=== PATIENT | female | born 2005 | race Two or more races ===

== ENCOUNTER 2024-09-27 17:38 | Observation (INO) | payer MEDICAID, SELFPAY ==
[2024-09-27] VITALS (21 sets, daily range): BP systolic 111–129; BP diastolic 62–75; PULSE 70–93; RESP 16–99; TEMP 36.8; O2SAT 92–100; BMI 38.7
[2024-09-27 18:07] LABS: Collection Type, Urine Clean Catch
[2024-09-27 19:06] LABS: Bilirubin,Urine Negative (Negative); Blood,Urine Negative (Negative); Clarity,Urine Clear (Clear/Hazy); Color,Urine Lt-Yellow (Lt Yel-Yel); Glucose, Urine Negative (Negative); Ketones,Urine 1+ (Negative); Leukocyte Esterase,Urine Negative (Negative); Nitrite,Urine Negative (Negative); PH,Urine 7.5 (5.0-7.0); Protein,Urine Negative (Neg - Trace); RBC,Urine 2 /hpf (0-3); Specific Gravity,Urine 1.018 (1.001-1.035); Squamous Epithelial Cell,Urine 10 /hpf (0-5); Urobilinogen,Urine Negative mg/dL (0.0-1.0); WBC,Urine 1 /hpf (0-5)
== END 2024-09-27 19:35 | disposition home or self-care (01) ==
PROVIDERS: Admitting Provider Obstetrics & Gynecology; Visit Provider Obstetrics & Gynecology
DX: Z34.83 Encounter for supervision of other normal pregnancy, third trimester (principal); Z3A.30 30 weeks gestation of pregnancy
CPT/HCPCS: 59025; 59899; 81001; G0378

== ENCOUNTER 2024-10-17 14:25 | Outpatient (AMB) | payer MEDICAID, SELFPAY ==
[2024-10-17 14:51] VITALS: BP 115/74; PULSE 75; RESP 16; TEMP 36.6; O2SAT 96; BMI 40.6
--- NOTE | 2024-10-17 14:51 | OBCLNT_ITS ---
Vital Signs 10/17/24 14:51 Height 1.5 m Height Method Stated Weight 91.172 kg Weight Measurement Method Standing Scale BMI 40.6 BP 115/74 Blood Pressure Source Automatic Cuff Blood Pressure Location Left Upper Arm Position Sitting Respiration 16 Pulse 75 Pulse Source Monitor Temp 97.8 F Temp Source Oral Pulse Oximetry (%) 96 Oxygen Delivery Method Room Air Allergies/Home Meds Allergies & Medications Allergies No Known Allergies Allergy (Verified 10/17/24 14:53) Medication Reconciliation Unobtainable 10/17/24 [History Confirmed 10/17/24] Intake Visit Data Collection New Patient or Established: Established Patient (seen at [facility] within 3 years) Reason for Visit:: care Seen by Clinical Staff ONLY (RN/MA): No Circulation Librarian Required: No Do You Feel Safe at Home: Yes Authorities Contacted: N/A PCP or OBGYN visit in last 3 months: Yes Hx Now: Yes Are you currently on any form of Control: No Last menstrual period: 02/25/24 Pain Present Currently: No Pain Scale Used: Mortensen-Castro/Numerical Pain scale:: 0 Smoking Status Smoking Status: Never smoker Questionnaires Covid-19 Vaccine Questionnaire Has patient been vacinated for Covid-19 Have you been vacinated for Covid-19: No PHQ-9 PHQ-2 Over the last 2 weeks, how often have you been bothered by any of the following problems? 1. Little interest or pleasure in doing things: not at all 2. Feeling down, depressed, or hopeless: not at all Total score: 0 PHQ-9 3. Trouble falling or staying asleep, or sleeping too much: Not at all 4. Feeling tired or having little energy: Not at all 5. Poor appetite or overeating: Not at all 6. Feeling bad about yourself - or that you are a failure or have let yourself or your family down: Not at all 7. Trouble concentrating on things, such as reading the newspaper or watching television: Not at all 8. Moving or speaking so slowly that other people could have noticed? - Or the opposite - being so fidgety or restless that you have been moving around a lot more than usual: not at all 9. Thoughts that you would be better off or of hurting yourself in some way: Not at all Total score: 0 Source: Developed by Drs. Everett Perez, Amisha Barnhart, Madi Larry and colleagues, with an educational nani from [employer]. Depression screen completed yes Social History Living Situation History Marital Status: Life Partner Lives With: Family Housing: Apartment Tobacco History Smoking Status: Never smoker Second Hand Smoke Exposure: No Alcohol History Alcohol Intake: Never Domestic Abuse History Do You Feel Safe at Home: Yes Past Medical History Past Medical History Have you ever been diagnosed with any of the following: Neurological Problems Cerebrovascular Accident (CVA): No Transient Ischemic Attacks (TIA): No Dementia: No Alzheimer's Disease: No Parkinson's Disease: No Brain Tumor: No Meningitis: No Seizures: No Epilepsy: No Guillain-Mcmechen Syndrome: No Cardiology Problems Myocardial Infarction: No Cardiac Arrhythmia: No Atrial Fibrillation: No Angina: No Hypertension: No Respiratory Problems Chronic Obstructive Pulmonary Disease (COPD): No Asthma: No Bronchitis: No Emphysema: No Pneumonia: No Pulmonary Fibrosis: No Tuberculosis: No Pulmonary Embolism: No Pulmonary Edema: No Sleep Apnea: No CPAP Dependent: No Hx Cough: No Cough: No Wheezing: No Chest Deformities: No Smoking: No Smoking Cessation Counseling: No Smoking Exposure: No Tobacco Use: No Stomache/Intestinal Problems Liver Cancer: No Hepatitis: No Cirrhosis: No Gall Bladder Disease: No Crohn's Disease: No Obstructive Bowel: No Hiatal Hernia: No Genital/Urinary Problems Chronic Kidney Disease: No Renal Disease: No Kidney Stones: No Polycystic Kidney Disease: No Neurogenic Bladder: No Reproductive Problems Breast Cancer: No Endometriosis: No Fibroids: No Genital Herpes: No Gonorrhea: No Previous Pregnancies: Yes Syphilis: No Musculoskeletal Problems Muscular Dystrophy: No Myasthenia Gravis: No Marfan's Syndrome: No Bone Cancer: No Arthritis: No Gout: No Head,Eye,Nose,Throat Problems Cataracts: No Glaucoma: No Blind: No Retinal Detachment: No Macular Degeneration: No Chronic Ear Infections: No Deafness: No Eye Prosthesis: No Endocrine Problems Diabetes Mellitus Type 1: No Diabetes Mellitus Type 2: No Hypoglycemia: No Jet's Syndrome: No Langston's Disease: No Adrenal Disease: No Graves' Disease: No Blood Problems Anemia: No Leukemia: No Hemophilia: No Thalassemia: No Sickle Cell Disease: No Clotting Problems: No Psychologic Problems Depression: No Anxiety: No Behavior Problems: No Other Problems Hospitalization: No Autoimmune Disease: No Down Syndrome: No Autism: No Developmental Delay: No Cosmetic Surgery: No Surgical History Angioplasty: No Appendectomy: No Bariatric Surgery: No Breast Surgery: No Cancer Surgery: No Carotid Endarterectomy: No Cholecystectomy: No Colectomy: No Colostomy: No Coronary Artery Bypass Graft: No Valve Replacement: No Herniorrhaphy: No History of Present Illness HPI Narrative Patient is a 3 para 2 with 2 living children presenting for transfer of care from another facility. Her last menstrual period was on 02-25-2024, with an estimated due date of 12-01-2024, consistent with 23 weeks and 6 days by ultrasound. Initial labs performed on 08-06-2024 showed blood group O-positive, rubella-immune status, nonreactive RPR, negative hepatitis B and HIV, negative gonorrhea and chlamydia, one-hour glucose of 124, and A1c of 5.2. Patient previously received care at [facility] under Dr. Metzger, who has since retired from hospital practice. She reports no history of blood pressure issues or gestational diabetes in her previous pregnancies. Patient discontinued vitamins due to significant nausea. Patient has no other significant medical history reported. Her current and past medications include vitamins, which she stopped taking due to sickness. Diagnostic Test Results and Labs: - Ultrasound (Date N/A): Consistent with 23 weeks and 6 days gestation - Initial labs (08-06-2024): - Blood group: O-positive - Rubella: Immune - RPR: Nonreactive - Hepatitis B: Negative - HIV: Negative - Gonorrhea and chlamydia: Negative - One-hour glucose: 124 - A1c: 5.2 OB Initial Visit Menstrual History Menstrual reliability: definite Flow: normal Menstrual regularity: regular Monthly: Yes Age at menarche: 9 On control pills at conception: No Date of positive home test: 06/29/24 Associated symptoms (LMP): Denies amenorrhea, nausea, vomiting, fatigue, breast tenderness, urinary frequency, irritability, bloating or other OB History : 3 Para: 2 # of Living Children: 0 Delivery History 1st : Child's name: MATTHEW date: 03/06/20 sex: male Gestational age at delivery (weeks): 40 Delivery type: vaginal History of depression before or after : No 2nd : Child's name: CHRISS date: 03/13/22 sex: female Gestational age at delivery (weeks): 41 Delivery type: vaginal History of depression before or after : No Infection History & Risk Evaluation History of STDs: none Genetic Screening & History Genetic Screening/Teratology Counseling - Includes patient, baby's father, or anyone in either family with: 1. Patient's age 35 years or older as of estimated date of delivery: No 2. Thalassemia (Persian, Cymro, Mediterranean, or Background); MCV less than 80: No 3. Neural Tube Defect (Meningomyelocele, Spina Bifida, or Anencephaly): No 4. Congenital Heart Defect: No 5. Down Syndrome: No 6. Remy-Sachs (Ashkenazi Worship, Cajun, Botswanan Kyrgyz): No 7. Jodi Disease (Ashkenazi Worship): No 8. Familial Dysautonomia (Ashkenazi Worship): No 9. Sickle Cell Disease or Trait (): No 10. Hemophilia or other blood disorders: No 11. Muscular Dystrophy: No 12. Cystic Fibrosis: No 13. [place]'s Chorea: No 14. Mental Retardation/Autism: No 15. Other inherited genetic or chromosomal disorder: No 16. Maternal Metabolic Disorder (EG,TYPE 1 Diabetes, PKU): No 17. Patient or baby's father had a child with defects not listed above: No 18. Recurrent loss or a stillbirth: No 19. Medications (including supplements, vitamins, herbs or otc drugs)/illicit/recreational drugs/alcohol since last menstrual period: No 20. Any other: No Infection History 1. Live with someone with TB or exposed to TB: No 2. Rash or viral illness since last menstrual period: No 3. Hepatitis B,C: No Other (see comments) Source: [employer] OB Flowsheet OB Flowsheet Initial Weight: Not Recorded Date -?-?-?-?-?-?-?-?-?-?-?-?- EGA Weight Edema CTX Effacement BP Fundal ht Pres Dilation Effacement Station Visit Note Alb Glu FHR Mov 10/17/24 -?-?-?-?-?-?-?-?-?-?-?-?- 33w 4d 91.172 kg 115/74 OB T Count includes the [facility] 145 Review of Systems Review of Systems Systems Reviewed: All systems reviewed, normal except as documented Constitutional Constitutional: Denies fatigue Gastrointestinal Gastrointestinal: Denies bloating, Denies nausea and Denies vomiting Genitourinary Genitourinary: Denies amenorrhea and Denies urinary frequency Psychiatric Psychiatric: Denies irritability Endocrine Endocrine: Denies fatigue Exam General Limitations: no limitations General Appearance: alert, in no apparent distress, comfortable, cooperative, healthy appearing, well developed and well groomed Chest Chest inspection: Present normal inspection and symmetric chest wall rise Abdominal Abdominal exam: Present soft and normal bowel sounds Psych Psychiatric exam: Present normal affect and normal mood Skin Skin exam: Present warm, dry, intact and normal color Assessment & Plan Diagnosis / Problem List (1) Supervision of high risk , unspecified, second trimester: Status: Acute Plan : - April Cool is at 23 weeks and 6 days gestation. - Last menstrual period: 02-25-2024, consistent with ultrasound dating. - Estimated due date: 12-01-2024. - Initial labs (08-06-2024) within normal limits. - No current evidence of gestational diabetes. - No history of hypertension or diabetes in previous pregnancies. - Transferring care from [facility] (Dr. Metzger). Plan: - Schedule follow-up appointment in 2 weeks. - Anticipate blood tests at next visit. - Continue care with visits every 2 weeks, increasing to weekly as term approaches. - Restart vitamins and monitor for tolerance. - Delivery planned at the hospital. Office Procedures OB Clinic LOC & Office Proc's Nursing/Assessment Patient Status: Established Patient OB Clinic Nursing Assessment: Medication Reconciliation, Update PMH in EMR and Vital Signs OB Clinic Coordination of Care: Complex Care and Chronic Disease 1-5, Consent,records obtained, informed consent, Education Simp Pt/Fam, Lab and Imaging orders, Results/Orders obtained and Staff clarify orders Special Needs: Heart tones Established Patient Charge Established Patient Point Assignment: 135 Established Patient Point Charge: EP Level 4 (120-155)
== END 2024-10-17 15:05 | disposition home or self-care (01) ==
LOC: HODSOBC 14:25
PROVIDERS: Supervising Provider Obstetrics & Gynecology; Visit Provider Obstetrics & Gynecology
DX: O09.93 Supervision of high risk pregnancy, unspecified, third trimester (principal); Z3A.33 33 weeks gestation of pregnancy
CPT/HCPCS: 99214; G0463

== ENCOUNTER 2024-10-26 15:52 | Inpatient (IN) | payer MEDICAID, SELFPAY ==
[2024-10-26] VITALS (88 sets, daily range): BP systolic 109–123; BP diastolic 55–69; PULSE 68–101; RESP 18–99; TEMP 36.4–36.8; O2SAT 98–100; BMI 40.1
[2024-10-26] MEDS: RINGERS LACTATED 1000 ML 1,000 ML 100 ML IV (16:30)
--- NOTE | 2024-10-26 16:52 | XR_ITS ---
Examination: Complete OB ultrasound greater than 14 weeks Date and time of exam: October 26, 2024 at 7203 hrs. Indications: Pelvic contractions beginning 3 days ago Findings: Viable intrauterine single fetus with single amniotic sac presentation cephalic Cardiac motion 144 BPM Placenta anterior grade 1 Amniotic fluid index 12.1 Cervix 3.9 cm Ovaries obscured by bowel gas. Composite estimated gestational age based on BPD, head circumference, abdominal circumference, femur length is 33 weeks 0 days Estimated weight 2114 g. Survey of intracranial anatomy, spinal anatomy, abdominal anatomy, four-chamber heart performed with no abnormalities identified. Impression: Viable intrauterine gestation cephalic presentation Estimated gestational age 33 weeks 0 days.
[2024-10-26] MEDS: BETAMET ACET/BETAMET NA PH (Celestone) 6 MG/ML VIAL 12 MG IM (17:15)
[2024-10-26 17:50] LABS: Basophils % (Auto) 0 % (0-2.5); Eosinophils % (Auto) 0 % (0-10); Hematocrit 33.1 % (36.0-46.0); Hemoglobin 11.3 g/dL (12.0-16.0); Immature Granulocytes % (Auto) 1 % (0-0); Immature Granulocytes Auto 0.04 Thou/mm3 (0.00-0.00); Lymphocytes # (Auto) 1.2 Thou/mm3 (1.0-4.8); Lymphocytes % (Auto) 17 % (10-50); Mean Corpuscular HGB Conc 34.1 g/dl (31.0-37.0); Mean Corpuscular Hemoglobin 28.5 pg (25.0-35.0); Mean Corpuscular Volume 84 fL (80-100); Monocytes # (Auto) 0.5 Thou/mm3 (0.0-0.8); Monocytes % (Auto) 6 % (0-12); Neutrophils # (Auto) 5.6 Thou/mm3 (1.8-7.7); Neutrophils % (Auto) 76 % (37-80); Nucleated Red Blood Cell % 0 /100 WBC (0); Platelet Count 205 Thou/mm3 (140-440); RDW Standard Deviation 39.8 fL (36.4-46.3); Red Blood Count 3.96 Miln/mm3 (4.00-5.20); White Blood Count 7.4 Thou/mm3 (3.6-11.0)
[2024-10-26 18:02] LABS: Amphetamine/Metham Scrn,Ur OB Negative (Negative); Benzoylecgonine Screen, Ur OB Negative (Negative); Opiate Screen,Urine OB Negative (Negative); THC Screen,Urine OB Negative (Negative)
[2024-10-26 18:10] LABS: Alanine Aminotransferase 17 U/L (10-49); Albumin, Serum 4.2 gm/dL (3.5-5.0); Albumin/Globulin Ratio 1.5 (1.2-2.2); Alkaline Phosphatase 150 U/L (46-116); Anion Gap 9 (7-16); Aspartate Amino Transferase 29 U/L (0-34); BUN/Creatinine Ratio 13 Ratio (12-20); Bacteria,Urine 2+; Bilirubin,Total 0.6 mg/dL (0.3-1.2); Bilirubin,Urine Negative (Negative); Blood Urea Nitrogen < 5 mg/dL (9-23); Blood,Urine Negative (Negative); Calcium 8.9 mg/dL (8.3-10.6); Calcium (Corrected) 8.9 mg/dL (8.5-10.1); Carbon Dioxide 21.6 mMol/L (20.0-31.0); Chloride 107 mMol/L (98-107); Clarity,Urine Turbid (Clear/Hazy); Collection Type, Urine Clean Catch; Color,Urine Lt-Yellow (Lt Yel-Yel); Creatinine (Component) 0.4 mg/dL (0.6-1.3); Estimated Creatinine Clearance 217.8 mL/min (>60); Globulin 2.8 gm/dL (2.3-3.5); Glucose 88 mg/dL (74-106); Glucose, Urine Negative (Negative); Ketones,Urine 1+ (Negative); Leukocyte Esterase,Urine Positive (Negative); Nitrite,Urine Negative (Negative); Osmolality,Calculated 271 (275-295); PH,Urine 7.5 (5.0-7.0); Potassium 3.6 mMol/L (3.4-5.1); Protein,Urine Negative (Neg - Trace); RBC,Urine < 1 /hpf (0-3); Sodium 138 mMol/L (136-145); Specific Gravity,Urine 1.017 (1.001-1.035); Squamous Epithelial Cell,Urine 20 /hpf (0-5); Urobilinogen,Urine Negative mg/dL (0.0-1.0); WBC,Urine 9 /hpf (0-5); eGFR > 60 See Note
--- NOTE | 2024-10-26 18:15 | PD.LDHP ---
Documentation for date of: 10/26/24 OB Labor/Induct. HPI History of Present Illness Chief complaint: Contractions, 34 6/7 weeks : 3 Para: 2 Term pregnancies: 2 pregnancies: 0 Living children: 2 History of Abortions: Spontaneous and Elective: 0 History of Vaginal deliveries: 2 History of sections: No History of : No ADRIAN: 12/01/24 Gestational Age (weeks): 34 Gestational Age (days): 5 History of present illness: The patient is a 19-year-old -0-0-2 presented to triage reporting some cramping pain. She rated her pain an 8 out of 10 but she appeared calm. She is 34-6/7 weeks . A vaginal exam in triage revealed the patient to be 3 to 4 cm dilated 50% effaced vertex presentation. She was admitted for observation,GBBS cx, prophylaxsis, IV fluids, and Celestone. History of Present Dating criteria: LMP confirmed by 2nd trimester US Adequate Care: Yes Obstetrical complications: none Medical complications: none Labs Maternal Blood Type: O Pos Labs: Positive: Rubella Titre, Negative: RPR, Hepatitis B, HIV, Chlamydia and Gonorrhea and Unknown: Group Beta Strep Narrative: Patient started care at [facility] with Dr. Thomas and transferred to Dr. Pelletier at the [place] [facility] October 17. Review of Systems Review of Systems Narrative Review of Systems: Patient denies loss of fluid heavy vaginal bleeding she reports contraction pain 8 out of 10. Past Medical History Surgical History SURGICAL: Negative Section Meds Home Medications and Allergies Home Medications ?Medication ?Instructions ?Recorded ?Confirmed ?Type pren vit comb.1-iron cb-FA-DSS 90 1 tab PO .Q DAY 10/26/24 10/26/24 History mg-1 mg-50 mg tablet Allergies Allergy/AdvReac Type Severity Reaction Status Date / Time No Known Allergies Allergy Verified 10/26/24 16:55 OB Exam Physical Exam Vital signs: Temp Pulse Resp BP Pulse Ox 97.6 F 78 18 109/63 100 10/26/24 16:09 10/26/24 16:10 10/26/24 16:09 10/26/24 16:10 10/26/24 18:12 Detailed Labor and Delivery Exam Effacement (%): 50 Cervix position: mid station: -2 Consistency: medium Presentation: Vertex monitor accelerations: 15x15 monitor decelerations: None rn long term care variability: Moderate (11-25) Contraction frequency (min): Every 2 to 3 minutes Contraction intensity: Mild OB Results Labs 10/26/24 17:11 10/26/24 16:56 Labs: Short CBC 10/26/24 Range/Units 17:11 WBC 7.4 (3.6-11.0) Thou/mm3 Hgb 11.3 L (12.0-16.0) g/dL Hct 33.1 L (36.0-46.0) % Plt Count 205 (140-440) Thou/mm3 BMP 10/26/24 16:56 Sodium 138 Potassium 3.6 Chloride 107 Carbon Dioxide 21.6 BUN < 5 L Creatinine 0.4 L Glucose 88 Calcium 8.9 Liver Function 10/26/24 Range/Units 16:56 Total Bilirubin 0.6 (0.3-1.2) mg/dL AST 29 (0-34) U/L ALT 17 (10-49) U/L Alkaline Phosphatase 150 H (46-116) U/L Albumin 4.2 (3.5-5.0) gm/dL Urine 10/26/24 Range/Units 16:56 Urine Color Lt-Yellow (Lt Yel-Yel) Urine Clarity Turbid A (Clear/Hazy) Urine pH 7.5 H (5.0-7.0) Ur Specific [place] 1.017 (1.001-1.035) Urine Protein Negative (Neg - Trace) Urine Glucose (UA) Negative (Negative) OB Assessment & Plan Assessment and Plan (1) labor in third trimester: Status: Acute Additional Plan Induction method: none Plan: GBS prophylaxis tx Additional Plan Comment: Admit patient. Check group B strep. Group B strep prophylaxis. Check urinalysis and drug screen. Ultrasound ordered. Celestone now and repeat in 24 hours. (1) labor in third trimester Qualifiers: labor delivery status: without delivery Qualified Code(s): O60.03 - labor without delivery, third trimester
[2024-10-26 18:29] LABS: Syphilis Nonreactive (Nonreactive)
[2024-10-26] MEDS: Ampicillin Inj 1,000 MG in SODIUM CHLORIDE 0.9% (Popper) 50 ML 50 MG IV ×2 (18:50→22:56)
[2024-10-26] MEDS: fentaNYL CIT INJ 50 mCg/ML AMP 2ML 100 MCG IV (19:32)
[2024-10-26] MEDS: TERBUTALINE SULF INJ 1 MG/ML VIAL 0.25 MG SC (19:33)
[2024-10-27] VITALS (99 sets, daily range): BP systolic 92–128; BP diastolic 51–68; PULSE 59–117; RESP 18; TEMP 36.5–37; O2SAT 97–100
[2024-10-27] MEDS: RINGERS LACTATED 1000 ML 1,000 ML 100 ML IV (02:56)
[2024-10-27] MEDS: Ampicillin Inj 1,000 MG in SODIUM CHLORIDE 0.9% (Popper) 50 ML 50 MG IV ×4 (03:00→16:00)
[2024-10-27] MEDS: RINGERS LACTATED 1000 ML 1,000 ML 125 ML IV (06:37)
[2024-10-27] MEDS: BETAMET ACET/BETAMET NA PH (Celestone) 6 MG/ML VIAL 12 MG IM (16:44)
[2024-10-27] MEDS: NIFEdipine 10 MG CAPSULE PO (16:46)
--- NOTE | 2024-10-27 17:24 | PD.LDPN ---
Documentation for date of: 10/27/24 OB Labor Progress Note Pain Control Pain control: other Comments: The patient has not been ruby regularly overnight. She still reports contractions about every 10 minutes and states they are 7 out of 10 . She has had no loss of fluids, no vaginal bleeding and heart tones have been reactive. A repeat vaginal exam 24 hours after admission reveals patient is 3-4/50/-2 station. The plan will be to discharge home patient after laura second dose of Celestone on modified bedrest and pelvic rest. We will send her home on p.o. nifedipine. Pelvic Exam Dilation (cm): 3-4 Effacement (%): 50 station: -2 Amniotic membrane status: Intact Contractions Monitor mode: External Contraction frequency: Irregular Contraction intensity: Mild Status status: Category l Assessment and Plan Plan OB labor note: other Comments: Discharge home on oral nifedipine after her last dose of Celestone follow-up next week in the clinic.
--- NOTE | 2024-10-27 17:27 | PD.LDDS ---
DS: Providers Provider Date of admission: 10/26/24 16:48 Primary care physician: Physician No Primary/Family Admitting Provider: Trina Shannon MD (OB Clinic) Attending Provider on Admission: Trina Shannon MD (OB Clinic) Attending Provider on DC: Trina Shannon MD (OB Clinic) Discharging Provider: Trina Shannon MD (OB Clinic) Anticipated date of discharge: 10/27/24 DS: Diagnosis Discharge Diagnosis (1) labor in third trimester: Status: Acute Assessment & Plan: Patient has made no cervical change in 24 hours. She has had Celestone 2 doses, on 10/26/24 and 10/27/2024. She has a reactive NST and states she has contractions every 10 minutes. We will send her home on oral nifedipine with pelvic rest and modified bedrest. Follow-up in clinic in 1 week. Problem List Completed Was Problem List Reviewed/Reconciled?: Yes Summary/Hosp Course Brief History: The patient is a 19-year-old -0-0-2 presented to triage reporting some cramping pain. She rated her pain an 8 out of 10 but she appeared calm. She is 34-6/7 weeks . A vaginal exam in triage revealed the patient to be 3 to 4 cm dilated 50% effaced vertex presentation. She was admitted for observation,GBBS cx, prophylaxsis, IV fluids, and Celestone. Status at Discharge Cognitive/behavioral status at discharge: Stable Functional status at discharge: independent ambulation Overall status at discharge: Undelivered Time Spent with Patient Time attestation: Total time spent providing and/or coordinating discharge services: Time spent: Less than 30 minutes Specific discharge activities: No heavy exercise. No intercourse for 2 weeks. Exam Vital Signs Temp Pulse Resp BP Pulse Ox 98.6 F 70 18 116/60 98 10/27/24 15:44 10/27/24 16:48 10/27/24 15:44 10/27/24 16:48 10/27/24 17:27 Narrative Exam Patient is alert and oriented x 3 in no apparent distress. Cervix on admission was 3 to 4 cm dilated 50-2 it is unchanged 24 hours later. Additional findings Additional findings: Ultrasound reveals a vertex baby normal DONIS weight of 2114 gm Discharge Plan Plan Patient Disposition: HOME (Self Care) Disposition Comment: Stable Health Concerns: Patient ruled out for active labor Prescriptions/Referrals Prescriptions/Med Rec: New nifedipine 10 mg capsule 10 mg PO TID Qty: 30 1RF No Action pren vit comb.1-iron cb-FA-DSS 90-1-50 mg tablet 1 tab PO .Q DAY Referrals: No Primary/Family,Physician [Primary Care Provider] - Patient/Caregiver Discharge Instructions Other Discharge Activity Instructions:: Pelvic rest x 2 weeks. No heavy lifting or heavy exercise x 2 weeks. Other Discharge Diet Instructions: General Diet Education Materials: Understanding Labor Print Language: Vietnamese Activity Restrictions/Additional Instructions: Return to hospital further loss of fluids heavy vaginal bleeding decreased movement or regular painful uterine contractions every 2 to 3 minutes for greater than an hour. Stand Alone Forms: Joann Award Info., Patient Portal Info Letter Discharge Order Discharge Orders: Discharge (Routine); Ordered 10/27/24 Ordered By: Trina Shannon (OB Clinic) Planned Discharge Date 10/27/24 (1) labor in third trimester Qualifiers: labor delivery status: without delivery Qualified Code(s): O60.03 - labor without delivery, third trimester
== END 2024-10-27 18:10 | disposition home or self-care (01) | DRG 566 ==
PROVIDERS: Admitting Provider Obstetrics & Gynecology; Visit Provider Obstetrics & Gynecology
DX: O60.03 Preterm labor without delivery, third trimester (principal); Z3A.34 34 weeks gestation of pregnancy
CPT/HCPCS: 36415; 59025; 76805; 80053; 80307; 81001; 85025; 86780; 86850; 86900; 86901; 87086; J0290; J0702; J3010; J3105; J7050; J7120; A9270

== ENCOUNTER 2024-11-04 09:36 | Outpatient (AMB) | payer MEDICAID, SELFPAY ==
[2024-11-04 09:43] VITALS: BP 116/71; PULSE 73; RESP 18; TEMP 36.2; O2SAT 98
--- NOTE | 2024-11-04 09:43 | OBCLNT_ITS ---
Vital Signs 11/04/24 09:43 Height 59 m Height Method Stated Weight 91.285 kg Weight Measurement Method Standing Scale BMI 0.0 BP 116/71 Blood Pressure Source Automatic Cuff Blood Pressure Location Left Upper Arm Position Sitting Respiration 18 Pulse 73 Pulse Source Monitor Temp 97.2 F Temp Source Oral Pulse Oximetry (%) 98 Oxygen Delivery Method Room Air Allergies/Home Meds Allergies & Medications Allergies No Known Allergies Allergy (Verified 11/04/24 09:44) Medication Reconciliation pren vit comb.1-iron cb-FA-DSS 90 mg-1 mg-50 mg tablet 1 tab PO .Q DAY 10/26/24 [History Confirmed 11/04/24] nifedipine 10 mg capsule 10 mg PO TID #30 caps 10/27/24 [Rx Confirmed 11/04/24] Intake Visit Data Collection New Patient or Established: Established Patient (seen at [facility] within 3 years) Reason for Visit:: OBC Seen by Clinical Staff ONLY (RN/MA): No Electrical And Instrumentation Manager Required: Yes Electrical And Instrumentation Manager's name/title: JIM WINTERS / TECHNICAL OPERATIONS MANAGER Do You Feel Safe at Home: Yes Authorities Contacted: N/A PCP or OBGYN visit in last 3 months: Yes Date of Last PCP or OBGYN visit: 10/27/24 Hx Now: Yes Are you currently on any form of Control: No Pain Present Currently: No Pain Scale Used: Mortensen-Castro/Numerical Pain scale:: 0 Smoking Status Smoking Status: Never smoker Questionnaires Covid-19 Vaccine Questionnaire Has patient been vacinated for Covid-19 Have you been vacinated for Covid-19: Yes PHQ-9 PHQ-2 Over the last 2 weeks, how often have you been bothered by any of the following problems? 1. Little interest or pleasure in doing things: not at all 2. Feeling down, depressed, or hopeless: not at all Total score: 0 PHQ-9 3. Trouble falling or staying asleep, or sleeping too much: Not at all 4. Feeling tired or having little energy: Not at all 5. Poor appetite or overeating: Not at all 6. Feeling bad about yourself - or that you are a failure or have let yourself or your family down: Not at all 7. Trouble concentrating on things, such as reading the newspaper or watching television: Not at all 8. Moving or speaking so slowly that other people could have noticed? - Or the opposite - being so fidgety or restless that you have been moving around a lot more than usual: not at all 9. Thoughts that you would be better off or of hurting yourself in some way: Not at all Total score: 0 If you checked off any problems, how difficult have these problems made it for you to do your work, take care of things at home, or get along with other people?: not difficult at all Source: Developed by Drs. Everett Perez, Amisha Barnhart, Madi Larry and colleagues, with an educational nani from [employer]. Depression screen completed yes Social History Living Situation History Lives With: Family Housing: House Tobacco History Smoking Status: Never smoker Second Hand Smoke Exposure: No Alcohol History Alcohol Intake: Never Domestic Abuse History Do You Feel Safe at Home: Yes Past Medical History Past Medical History Have you ever been diagnosed with any of the following: Neurological Problems Cerebrovascular Accident (CVA): No Transient Ischemic Attacks (TIA): No Dementia: No Alzheimer's Disease: No Parkinson's Disease: No Brain Tumor: No Meningitis: No Seizures: No Epilepsy: No Guillain-Reeders Syndrome: No Cardiology Problems Myocardial Infarction: No Cardiac Arrhythmia: No Atrial Fibrillation: No Angina: No Congestive Heart Failure: No Hypertension: No Respiratory Problems Chronic Obstructive Pulmonary Disease (COPD): No Asthma: No Bronchitis: No Emphysema: No Pneumonia: No Pulmonary Fibrosis: No Tuberculosis: No Pulmonary Embolism: No Pulmonary Edema: No Sleep Apnea: No CPAP Dependent: No Hx Cough: No Cough: No Wheezing: No Chest Deformities: No Smoking: No Smoking Cessation Counseling: No Smoking Exposure: No Tobacco Use: No Stomache/Intestinal Problems Liver Cancer: No Hepatitis: No Cirrhosis: No Gall Bladder Disease: No Crohn's Disease: No Obstructive Bowel: No Hiatal Hernia: No Genital/Urinary Problems Renal Disease: No Kidney Stones: No Polycystic Kidney Disease: No Neurogenic Bladder: No Reproductive Problems Breast Cancer: No Endometriosis: No Fibroids: No Genital Herpes: No Gonorrhea: No Pelvic Inflammatory Disease: No Previous Pregnancies: Yes Syphilis: No Uterine Prolapse: No Musculoskeletal Problems Muscular Dystrophy: No Myasthenia Gravis: No Marfan's Syndrome: No Bone Cancer: No Arthritis: No Gout: No Head,Eye,Nose,Throat Problems Cataracts: No Glaucoma: No Blind: No Retinal Detachment: No Macular Degeneration: No Chronic Ear Infections: No Deafness: No Eye Prosthesis: No Endocrine Problems Diabetes Mellitus Type 1: No Diabetes Mellitus Type 2: No Hypoglycemia: No Shane's Syndrome: No Rik's Disease: No Adrenal Disease: No Graves' Disease: No Blood Problems Anemia: No Leukemia: No Hemophilia: No Thalassemia: No Sickle Cell Disease: No Clotting Problems: No Psychologic Problems Depression: No Anxiety: No Behavior Problems: No Other Problems Hospitalization: No Down Syndrome: No Autism: No Developmental Delay: No Cosmetic Surgery: No Shingles: No Falls: No Blood Transfusions: No Blood Transfusion Reaction: Yes Anesthesia Reactions: No Organ Transplant: No Chemotherapy: No Radiation Therapy: No Hyperbaric Therapy: No MRSA: No VRSA: No Vancomycin-Resistant Enterococci: No Human Immunodeficiency Virus (HIV): No Chicken Pox: No Measles: No Mumps: No Rubella ([place] Measles): No Pertussis: No Clostridium Difficile: No Cancer: No Surgical History Angioplasty: No Appendectomy: No Bariatric Surgery: No Breast Surgery: No Cancer Surgery: No Carotid Endarterectomy: No Cholecystectomy: No Colectomy: No Colostomy: No Coronary Artery Bypass Graft: No Valve Replacement: No Herniorrhaphy: No History of Present Illness HPI Narrative April Martins presents for a routine visit. She reports no current contractions or problems. The patient recently had a brief hospital stay of one night for evaluation, but no cervical changes were noted, indicating she was not in active labor. The baby is reported to be active. The patient does not mention any specific complaints or concerns during this visit. She appears to be following her care plan, attending regular check-ups as scheduled. No changes in overall health status or new symptoms are reported since her last visit or recent hospital evaluation. Obstetric History - Current : - Patient is currently and appears to be near term - Regular movement reported - No current contractions reported - Recent hospital visit with no cervical changes noted, indicating patient is not in labor No contractions/ LOF/VB, reports good FM No BARKER/VC/RUQ/Epig pain Review of Systems Review of Systems Systems Reviewed: All systems reviewed, normal except as documented Visit OB Visit Log OB Flowsheet Initial Weight: Not Recorded Date -?-?-?-?-?-?-?-?-?-?-?-?- EGA Weight Edema CTX Effacement BP Fundal ht Pres Dilation Effacement Station Visit Note Alb Glu FHR Mov 10/17/24 -?-?-?-?-?-?-?-?-?-?-?-?- 33w 4d 91.172 kg 115/74 OB T [facility] 145 11/04/24 -?-?-?-?-?-?-?-?-?-?-?-?- 36w 1d 91.285 kg 116/71 The patient recently had a brief hospital stay of one night for evaluation, but no cervical changes were noted, indicating she was not in active labor. No contractions/ LOF/VB, reports good FM No BARKER/VC/RUQ/Epig pain. Group B Streptococcus (GBS) screening. Educated the patient on labor si gns, including regular contractions, lower back pain, and changes in vaginal discharge. Advised avoiding heavy lifting and getting adequate rest. Instructed to contact the office immediately if any signs occur. Discussed the importance of a balanced diet rich in folic acid, iron, and calcium, and provided a list of recommended and to-avoid foods. Emphasized avoiding high-sugar foods to reduce gestational diabetes risk. Encouraged hydration and frequent, small meals for energy.. 155 ADRIAN Calculator Estimated Delivery Date Method Current WG Current Estimate 12/01/24 LMP (Certain) 36w 1d Exam General Limitations: no limitations General Appearance: alert, in no apparent distress, comfortable, cooperative, healthy appearing, well developed and well groomed Head Head exam: atraumatic, normocephalic and normal inspection Abdominal Abdominal exam: Present soft and normal bowel sounds Psych Psychiatric exam: Present normal affect and normal mood Skin Skin exam: Present warm, dry, intact and normal color Assessment & Plan Diagnosis / Problem List (1) labor in third trimester: Status: Acute Qualifiers: labor delivery status: without delivery Qualified Code(s): O60.03 - labor without delivery, third trimester (2) Supervision of high risk , unspecified, second trimester: Status: Acute Plan Problem List , full-term Assessment 37-week patient presenting for routine visit. heart rate auscultated at 155 bpm, which is within normal limits. Patient reports no contractions or other problems. Recent hospital admission for observation resulted in no cervical changes, indicating patient is not in active labor. Group B Streptococcus screening swab due at this visit for prevention of infections such as meningitis. Plan Patient to undergo Group B Streptococcus (GBS) screening via self-administered vaginal swab. Instructions provided on proper swabbing technique at the vaginal opening. Follow-up appointment scheduled for next week, with weekly visits to continue from this point forward. heart rate monitoring performed, with normal results noted at 155 bpm. Educated the patient on labor signs, including regular contractions, lower back pain, and changes in vaginal discharge. Advised avoiding heavy lifting and getting adequate rest. Instructed to contact the office immediately if any signs occur. Discussed the importance of a balanced diet rich in folic ac id, iron, and calcium, and provided a list of recommended and to-avoid foods. Emphasized avoiding high-sugar foods to reduce gestational diabetes risk. Encouraged hydration and frequent, small meals for energy.. Office Procedures OB Clinic LOC & Office Proc's Nursing/Assessment Patient Status: Established Patient OB Clinic Nursing Assessment: BP Monitoring, Medication Reconciliation, Update PMH in EMR and Vital Signs OB Clinic Coordination of Care: Consent,records obtained, informed consent, Education Simp Pt/Fam and Staff clarify orders Special Needs: Heart tones Established Patient Charge Established Patient Point Assignment: 105 Established Patient Point Charge: EP Level 3 (80-115)
== END 2024-11-04 10:26 | disposition home or self-care (01) ==
LOC: HODSOBC 09:36
PROVIDERS: PCP Obstetrics & Gynecology; Referring Provider Obstetrics & Gynecology; Supervising Provider Obstetrics & Gynecology; Visit Provider Obstetrics & Gynecology
DX: O09.93 Supervision of high risk pregnancy, unspecified, third trimester (principal); Z3A.36 36 weeks gestation of pregnancy; Z36.85 Encounter for antenatal screening for Streptococcus B
CPT/HCPCS: 99213; G0463

== ENCOUNTER 2024-11-12 09:31 | Outpatient (AMB) | payer MEDICAID, SELFPAY ==
[2024-11-12 09:50] VITALS: BP 131/68; PULSE 14; RESP 69; TEMP 36.4; O2SAT 97; BMI 40.8
--- NOTE | 2024-11-12 09:50 | OBCLNT_ITS ---
Vital Signs 11/12/24 09:50 Height 1.5 m Height Method Measured Weight 91.796 kg Weight Measurement Method Standing Scale BMI 40.8 BP 131/68 H Blood Pressure Source Automatic Cuff Blood Pressure Location Left Upper Arm Position Sitting Respiration 69 H Pulse 14 L Pulse Source Monitor Temp 97.5 F Temp Source Oral Pulse Oximetry (%) 97 Oxygen Delivery Method Room Air Allergies/Home Meds Allergies & Medications Allergies No Known Allergies Allergy (Verified 11/12/24 09:51) Medication Reconciliation pren vit comb.1-iron cb-FA-DSS 90 mg-1 mg-50 mg tablet 1 tab PO .Q DAY 10/26/24 [History Confirmed 11/12/24] nifedipine 10 mg capsule 10 mg PO TID #30 caps 10/27/24 [Rx Confirmed 11/12/24] Intake Visit Data Collection New Patient or Established: Established Patient (seen at [facility] [place] within 3 years) Reason for Visit:: CARE Seen by Clinical Staff ONLY (RN/MA): No Mortgage Processing Manager Required: Yes Mortgage Processing Manager's name/title: JIM WINTERS Do You Feel Safe at Home: Yes Authorities Contacted: N/A PCP or OBGYN visit in last 3 months: Yes Hx Now: Yes Are you currently on any form of Control: No Pain Present Currently: No Pain Scale Used: Mortensen-Castro/Numerical Pain scale:: 0 Smoking Status Smoking Status: Never smoker Questionnaires Covid-19 Vaccine Questionnaire Has patient been vacinated for Covid-19 Have you been vacinated for Covid-19: No PHQ-9 PHQ-2 Over the last 2 weeks, how often have you been bothered by any of the following problems? 1. Little interest or pleasure in doing things: not at all 2. Feeling down, depressed, or hopeless: not at all Total score: 0 PHQ-9 3. Trouble falling or staying asleep, or sleeping too much: Not at all 4. Feeling tired or having little energy: Not at all 5. Poor appetite or overeating: Not at all 6. Feeling bad about yourself - or that you are a failure or have let yourself or your family down: Not at all 7. Trouble concentrating on things, such as reading the newspaper or watching television: Not at all 8. Moving or speaking so slowly that other people could have noticed? - Or the opposite - being so fidgety or restless that you have been moving around a lot more than usual: not at all 9. Thoughts that you would be better off or of hurting yourself in some way: Not at all Total score: 0 Source: Developed by Drs. Everett Perez, Amisha Barnhart, Madi Larry and colleagues, with an educational nani from [employer]. Depression screen completed yes Social History Living Situation History Lives With: Family Housing: House Tobacco History Smoking Status: Never smoker Second Hand Smoke Exposure: No Alcohol History Alcohol Intake: Never Domestic Abuse History Do You Feel Safe at Home: Yes Past Medical History Past Medical History Have you ever been diagnosed with any of the following: Neurological Problems Cerebrovascular Accident (CVA): No Transient Ischemic Attacks (TIA): No Dementia: No Alzheimer's Disease: No Parkinson's Disease: No Brain Tumor: No Meningitis: No Seizures: No Epilepsy: No Guillain-[place] Syndrome: No Cardiology Problems Myocardial Infarction: No Cardiac Arrhythmia: No Atrial Fibrillation: No Angina: No Congestive Heart Failure: No Hypertension: No Respiratory Problems Chronic Obstructive Pulmonary Disease (COPD): No Asthma: No Bronchitis: No Emphysema: No Pneumonia: No Pulmonary Fibrosis: No Tuberculosis: No Pulmonary Embolism: No Pulmonary Edema: No Sleep Apnea: No CPAP Dependent: No Hx Cough: No Cough: No Wheezing: No Chest Deformities: No Smoking: No Smoking Cessation Counseling: No Smoking Exposure: No Tobacco Use: No Stomache/Intestinal Problems Liver Cancer: No Hepatitis: No Cirrhosis: No Gall Bladder Disease: No Crohn's Disease: No Obstructive Bowel: No Hiatal Hernia: No Genital/Urinary Problems Renal Disease: No Kidney Stones: No Polycystic Kidney Disease: No Neurogenic Bladder: No Reproductive Problems Breast Cancer: No Endometriosis: No Fibroids: No Genital Herpes: No Gonorrhea: No Pelvic Inflammatory Disease: No Previous Pregnancies: Yes Syphilis: No Uterine Prolapse: No Musculoskeletal Problems Muscular Dystrophy: No Myasthenia Gravis: No Marfan's Syndrome: No Bone Cancer: No Arthritis: No Gout: No Head,Eye,Nose,Throat Problems Cataracts: No Glaucoma: No Blind: No Retinal Detachment: No Macular Degeneration: No Chronic Ear Infections: No Deafness: No Eye Prosthesis: No Endocrine Problems Diabetes Mellitus Type 1: No Diabetes Mellitus Type 2: No Hypoglycemia: No Shane's Syndrome: No Rik's Disease: No Adrenal Disease: No Graves' Disease: No Blood Problems Anemia: No Leukemia: No Hemophilia: No Thalassemia: No Sickle Cell Disease: No Clotting Problems: No Psychologic Problems Depression: No Anxiety: No Behavior Problems: No Other Problems Hospitalization: No Down Syndrome: No Autism: No Developmental Delay: No Cosmetic Surgery: No Shingles: No Falls: No Blood Transfusions: No Blood Transfusion Reaction: Yes Anesthesia Reactions: No Organ Transplant: No Chemotherapy: No Radiation Therapy: No Hyperbaric Therapy: No MRSA: No VRSA: No Vancomycin-Resistant Enterococci: No Human Immunodeficiency Virus (HIV): No Chicken Pox: No Measles: No Mumps: No Rubella ([place] Measles): No Pertussis: No Clostridium Difficile: No Cancer: No Surgical History Angioplasty: No Appendectomy: No Bariatric Surgery: No Breast Surgery: No Cancer Surgery: No Carotid Endarterectomy: No Cholecystectomy: No Colectomy: No Colostomy: No Coronary Artery Bypass Graft: No Valve Replacement: No Herniorrhaphy: No History of Present Illness HPI Narrative April Cool presents for follow-up of previously reported discomfort and contractions. The patient reports improvement in her symptoms since the last visit. She confirms completion of the prescribed medication regimen. The patient denies any new problems and reports that the baby remains active. Obstetric History - Current : - Patient is currently - heart rate: 160 bpm, noted as normal - Recent history of discomfort and contractions, which have improved - Patient completed prescribed medication - movement reported as active - Follow-up appointment scheduled in one week No contractions/ LOF/VB, reports good FM No BARKER/VC/RUQ/Epig pain Visit OB Visit Log OB Flowsheet Initial Weight: Not Recorded Date -?-?-?-?-?-?-?-?-?-?-?-?- EGA Weight Edema CTX Effacement BP Fundal ht Pres Dilation Effacement Station Visit Note Alb Glu FHR Mov 10/17/24 -?-?-?-?-?-?-?-?-?-?-?-?- 33w 4d 91.172 kg 115/74 OB T [facility] 145 11/04/24 -?-?-?-?-?-?-?-?-?-?-?-?- 36w 1d 91.285 kg 116/71 The patient recently had a brief hospital stay of one night for evaluation, but no cervical changes were noted, indicating she was not in active labor. No contractions/ LOF/VB, reports good FM No BARKER/VC/RUQ/Epig pain. Group B Streptococcus (GBS) screening. Educated the patient on labor si gns, including regular contractions, lower back pain, and changes in vaginal discharge. Advised avoiding heavy lifting and getting adequate rest. Instructed to contact the office immediately if any signs occur. Discussed the importance of a balanced diet rich in folic acid, iron, and calcium, and provided a list of recommended and to-avoid foods. Emphasized avoiding high-sugar foods to reduce gestational diabetes risk. Encouraged hydration and frequent, small meals for energy.. 155 11/12/24 -?-?-?-?-?-?-?-?-?-?-?-?- 37w 2d 91.796 kg 131/68 China Cool, patient, presents for follow-up after prior report of discomfort and contractions. No CTX/LOF/VB. Reports good FM. No BARKER/VS , Epig/RUQ pain. Completed prescribed medication. Symptom s improved. heart rate 160 bpm (normal). Assessment & Plan: April Cool is a patient p resenting for follow-up with resolution of prior discomfort and contractions. Symptoms improved, completed medication course heart rate reassuring at 160 bpm Good movement reported Follow-up visit scheduled in 1 week Routine counseling Educated on labor signs: regular contractions, lower back pain, changes in discharge Advised avoiding heavy lifting, ensuring adequate rest Reviewed importance of balanced diet (ri ch in folic acid, iron, calcium) Emphasized avoiding high-sugar foods to reduce gestational diabetes risk Encouraged hydration and frequent small meals for energy Instructed to contact office immediately if concerning symptoms arise 160 ADRIAN Calculator Estimated Delivery Date Method Current WG Current Estimate 12/01/24 LMP (Certain) 37w 4d Exam General General Appearance: alert, in no apparent distress and healthy appearing Head Head exam: atraumatic Neck Neck exam: Present normal inspection and trachea midline Chest Chest inspection: Present normal inspection and symmetric chest wall rise External exam: Present normal external exam; Absent tenderness Neuro Neurological exam: Present oriented X3 Psych Psychiatric exam: Present normal affect and normal mood Assessment & Plan Diagnosis / Problem List (1) labor in third trimester: Status: Acute Qualifiers: labor delivery status: without delivery Qualified Code(s): O60.03 - labor without delivery, third trimester (2) Supervision of high risk , unspecified, second trimester: Status: Acute Plan Problem List Assessment Patient reports improvement in previously experienced discomfort and contractions. activity is present. heart rate is 160 bpm, which is noted as normal. Plan Return for follow-up appointment in one week. Educated the patient on labor signs, including regular contractions, lower back pain, and changes in vaginal discharge. Advised avoiding heavy lifting and getting adequate rest. Instructed to contact the office immediately if any signs occur. Discussed the importance of a balanced diet rich in folic acid, iron, and calcium, and provided a list of recommended and to-avoid foods. Emphasized avoiding high-sugar foods to reduce gestational diabetes risk. Encouraged hydration and frequent, small meals for energy.. Office Procedures OB Clinic LOC & Office Proc's Nursing/Assessment Patient Status: Established Patient OB Clinic Nursing Assessment: Medication Reconciliation, Update PMH in EMR and Vital Signs OB Clinic Coordination of Care: Complex Care and Chronic Disease 1-5, Consent,records obtained, informed consent, Education Simp Pt/Fam, Lab and Imaging orders, Results/Orders obtained and Staff clarify orders Special Needs: Heart tones Established Patient Charge Established Patient Point Assignment: 135 Established Patient Point Charge: EP Level 4 (120-155)
== END 2024-11-12 10:09 | disposition home or self-care (01) ==
LOC: HODSOBC 09:31
PROVIDERS: Supervising Provider Obstetrics & Gynecology; Visit Provider Obstetrics & Gynecology
DX: O09.213 Supervision of pregnancy with history of pre-term labor, third trimester (principal); Z3A.37 37 weeks gestation of pregnancy
CPT/HCPCS: 99214; G0463

== ENCOUNTER 2024-11-19 10:15 | Outpatient (AMB) | payer MEDICAID, SELFPAY ==
--- NOTE | 2024-11-19 10:39 | OBCLNT_ITS ---
Vital Signs 11/19/24 10:45 Height 1.5 m Height Method Stated Weight 93.44 kg Weight Measurement Method Standing Scale BMI 41.5 BP 112/71 Blood Pressure Source Automatic Cuff Blood Pressure Location Left Upper Arm Position Sitting Respiration 18 Pulse 60 Pulse Source Monitor Temp 97.2 F Temp Source Oral Pulse Oximetry (%) 98 Oxygen Delivery Method Room Air Allergies/Home Meds Allergies & Medications Allergies No Known Allergies Allergy (Verified 11/19/24 10:39) Medication Reconciliation pren vit comb.1-iron cb-FA-DSS 90 mg-1 mg-50 mg tablet 1 tab PO .Q DAY 10/26/24 [History Confirmed 11/19/24] nifedipine 10 mg capsule 10 mg PO TID #30 caps 10/27/24 [Rx Confirmed 11/19/24] Intake Visit Data Collection New Patient or Established: Established Patient (seen at [facility] within 3 years) Reason for Visit:: - Routine visit at 38 weeks and 2 days gestation - A little bit of contractions Seen by Clinical Staff ONLY (RN/MA): No [employer] Wire[employer] Required: Yes [employer] 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 1. Little interest or pleasure in doing things: not at all 2. Feeling down, depressed, or hopeless: not at all Total score: 0 PHQ-9 3. Trouble falling or staying asleep, or sleeping too much: Not at all 4. Feeling tired or having little energy: Not at all 5. Poor appetite or overeating: Not at all 6. Feeling bad about yourself - or that you are a failure or have let yourself or your family down: Not at all 7. Trouble concentrating on things, such as reading the newspaper or watching television: Not at all 8. Moving or speaking so slowly that other people could have noticed? - Or the opposite - being so fidgety or restless that you have been moving around a lot more than usual: not at all 9. Thoughts that you would be better off or of hurting yourself in some way: Not at all Total score: 0 If you checked off any problems, how difficult have these problems made it for you to do your work, take care of things at home, or get along with other people?: not difficult at all Source: Developed by Drs. Everett Perez, Amisha Barnhart, Madi Larry and colleagues, with an educational nani from [employer]. Depression screen completed yes Social History Living Situation History Lives With: Family Housing: House Tobacco History Smoking Status: Never smoker Second Hand Smoke Exposure: No Alcohol History Alcohol Intake: Never Domestic Abuse History Do You Feel Safe at Home: Yes Past Medical History Past Medical History Have you ever been diagnosed with any of the following: Neurological Problems Cerebrovascular Accident (CVA): No Transient Ischemic Attacks (TIA): No Dementia: No Alzheimer's Disease: No Parkinson's Disease: No Brain Tumor: No Meningitis: No Seizures: No Epilepsy: No Guillain-Russell Syndrome: No Cardiology Problems Myocardial Infarction: No Cardiac Arrhythmia: No Atrial Fibrillation: No Angina: No Congestive Heart Failure: No Hypertension: No Respiratory Problems Chronic Obstructive Pulmonary Disease (COPD): No Asthma: No Bronchitis: No Emphysema: No Pneumonia: No Pulmonary Fibrosis: No Tuberculosis: No Pulmonary Embolism: No Pulmonary Edema: No Sleep Apnea: No CPAP Dependent: No Hx Cough: No Cough: No Wheezing: No Chest Deformities: No Smoking: No Smoking Cessation Counseling: No Smoking Exposure: No Tobacco Use: No Stomache/Intestinal Problems Liver Cancer: No Hepatitis: No Cirrhosis: No Gall Bladder Disease: No Crohn's Disease: No Obstructive Bowel: No Hiatal Hernia: No Genital/Urinary Problems Renal Disease: No Kidney Stones: No Polycystic Kidney Disease: No Neurogenic Bladder: No Reproductive Problems Breast Cancer: No Endometriosis: No Fibroids: No Genital Herpes: No Gonorrhea: No Pelvic Inflammatory Disease: No Previous Pregnancies: Yes Syphilis: No Uterine Prolapse: No Musculoskeletal Problems Muscular Dystrophy: No Myasthenia Gravis: No Marfan's Syndrome: No Bone Cancer: No Arthritis: No Gout: No Head,Eye,Nose,Throat Problems Cataracts: No Glaucoma: No Blind: No Retinal Detachment: No Macular Degeneration: No Chronic Ear Infections: No Deafness: No Eye Prosthesis: No Endocrine Problems Diabetes Mellitus Type 1: No Diabetes Mellitus Type 2: No Hypoglycemia: No Shane's Syndrome: No Pillager's Disease: No Adrenal Disease: No Graves' Disease: No Blood Problems Anemia: No Leukemia: No Hemophilia: No Thalassemia: No Sickle Cell Disease: No Clotting Problems: No Psychologic Problems Depression: No Anxiety: No Behavior Problems: No Other Problems Hospitalization: No Down Syndrome: No Autism: No Developmental Delay: No Cosmetic Surgery: No Shingles: No Falls: No Blood Transfusions: No Blood Transfusion Reaction: Yes Anesthesia Reactions: No Organ Transplant: No Chemotherapy: No Radiation Therapy: No Hyperbaric Therapy: No MRSA: No VRSA: No Vancomycin-Resistant Enterococci: No Human Immunodeficiency Virus (HIV): No Chicken Pox: No Measles: No Mumps: No Rubella (Malagasy Measles): No Pertussis: No Clostridium Difficile: No Cancer: No Surgical History Angioplasty: No Appendectomy: No Bariatric Surgery: No Breast Surgery: No Cancer Surgery: No Carotid Endarterectomy: No Cholecystectomy: No Colectomy: No Colostomy: No Coronary Artery Bypass Graft: No Valve Replacement: No Herniorrhaphy: No History of Present Illness HPI Narrative - April Cool is a 38-week and 2-day woman () presenting for a routine visit. - Patient transferred care from Dr. Metzger at [facility] to the current facility. - She reports experiencing a little bit of contractions. - Obstetrical history: - Two previous full-term vaginal deliveries in 2019 and 2021. - Current : - No reported problems or concerns. - heart rate noted as 141 beats per minute. No contractions/ LOF/VB, reports good FM No BARKER/VC/RUQ/Epig pain Care OB Visit Log OB Flowsheet Initial Weight: Not Recorded Date -?-?-?-?-?-?-?-?-?-?-?-?- EGA Weight Edema CTX Effacement BP Fundal ht Pres Dilation Effacement Station Visit Note Alb Glu FHR Mov 10/17/24 -?-?-?-?-?-?-?-?-?-?-?-?- 33w 4d 91.172 kg 115/74 [facility] 145 11/04/24 -?-?-?-?-?-?-?--?-?-?-?-?- 36w 1d 91.285 kg 116/71 The patient recently had a brief hospital stay of one night for evaluation, but no cervical changes were noted, indicating she was not in active labor. No contractions/ LOF/VB, reports good FM No BARKER/VC/RUQ/Epig pain. Group B Streptococcus (GBS) screening. Educated the patient on labor si gns, including regular contractions, lower back pain, and changes in vaginal discharge. Advised avoiding heavy lifting and getting adequate rest. Instructed to contact the office immediately if any signs occur. Discussed the importance of a balanced diet rich in folic acid, iron, and calcium, and provided a list of recommended and to-avoid foods. Emphasized avoiding high-sugar foods to reduce gestational diabetes risk. Encouraged hydration and frequent, small meals for energy.. 155 11/12/24 -?-?-?-?-?-?-?-?-?-?-?-?- 37w 2d 91.796 kg 131/68 China Cool, patient, presents for follow-up after prior report of discomfort and contractions. No CTX/LOF/VB. Reports good FM. No BARKER/VS , Epig/RUQ pain. Completed prescribed medication. Symptom s improved. heart rate 160 bpm (normal). Assessment & Plan: April Cool is a patient p resenting for follow-up with resolution of prior discomfort and contractions. Symptoms improved, completed medication course heart rate reassuring at 160 bpm Good movement reported Follow-up visit scheduled in 1 week Routine counseling Educated on labor signs: regular contractions, lower back pain, changes in discharge Advised avoiding heavy lifting, ensuring adequate rest Reviewed importance of balanced diet (ri ch in folic acid, iron, calcium) Emphasized avoiding high-sugar foods to reduce gestational diabetes risk Encouraged hydration and frequent small meals for energy Instructed to contact office immediately if concerning symptoms arise 160 11/19/24 -?-?-?-?-?-?-?-?-?-?-?-?- 38w 2d 93.44 kg 112/71 36-ye ar-old at 38 weeks and 2 days gestation presenting for a routine visit. She recently transferred care from Dr. Metzger at [facility]. The patient reports experiencing mild contractions but otherwise has no concerns. She has a history of two prior full-term vaginal deliveries in 2019 and 2021. movement is reported as normal, and there are no signs of labor, leakage of fluid, or vaginal bleeding. heart rate is 141 bpm. Her labs are reassuring, with a blood type of O-positive, rubella immunity, negative screens for hepatitis B, HIV, gonorrhea, and chlamydia, and a normal glucose tolerance result. Plan: Schedule follow-up visit at 39 weeks Perform cervical exam at next visit Advise patient to schedule 2 additional appointments Continue monitoring for signs of labor Reinforce standard education, i ncluding diet, hydration, rest, and when to seek medical attention 145 active ADRIAN Calculator Estimated Delivery Date Method Current WG Current Estimate 12/01/24 LMP (Certain) 38w 4d Exam General General Appearance: alert, in no apparent distress and healthy appearing Head Head exam: atraumatic Neck Neck exam: Present normal inspection and trachea midline Chest Chest inspection: Present normal inspection and symmetric chest wall rise External exam: Present normal external exam; Absent tenderness Neuro Neurological exam: Present oriented X3 Psych Psychiatric exam: Present normal affect and normal mood Assessment & Plan Diagnosis / Problem List (1) labor in third trimester: Status: Acute Qualifiers: labor delivery status: without delivery Qualified Code(s): O60.03 - labor without delivery, third trimester (2) Supervision of high risk , unspecified, third trimester: Status: Acute Plan Problem List - , third trimester - Mild contractions Assessment - 3, para 2 at 38 weeks and 2 days gestation - History of 2 full-term vaginal deliveries in 2019 and 2021 - Blood group O-positive - Rubella-immune - Hepatitis B-negative, HIV-negative - Gonorrhea and chlamydia-negative - One-hour glucose 124 mg/dL, hemoglobin A1c 5.2% - heart rate 141 bpm - Patient experiencing mild contractions Plan - Next visit scheduled at 39 weeks gestation - Cervical dilation check planned for next visit - Patient advised to schedule 2 more appointments Educated the patient on labor signs, including regular contractions, lower back pain, and changes in vaginal discharge. Advised avoiding heavy lifting and getting adequate rest. Instructed to contact the office immediately if any signs occur. Discussed the importance of a balanced diet rich in folic acid, iron, and calcium, and provided a list of recommended and to-avoid foods. Emphasized avoiding high-sugar foods to reduce gestational diabetes risk. Encouraged hydration and frequent, small meals for energy.. Office Procedures OB Clinic LOC & Office Proc's Nursing/Assessment Patient Status: Established Patient OB Clinic Nursing Assessment: BP Monitoring, Medication Reconciliation, Update PMH in EMR and Vital Signs OB Clinic Coordination of Care: Consent,records obtained, informed consent, Education Simp Pt/Fam and Staff clarify orders Special Needs: Heart tones Established Patient Charge Established Patient Point Assignment: 105 Established Patient Point Charge: EP Level 3 (80-115)
[2024-11-19 10:45] VITALS: BP 112/71; PULSE 60; RESP 18; TEMP 36.2; O2SAT 98; BMI 41.5
== END 2024-11-19 10:48 | disposition home or self-care (01) ==
LOC: HODSOBC 10:15
PROVIDERS: Supervising Provider Obstetrics & Gynecology; Visit Provider Obstetrics & Gynecology
DX: O09.893 Supervision of other high risk pregnancies, third trimester (principal); Z3A.38 38 weeks gestation of pregnancy; O60.03 Preterm labor without delivery, third trimester
CPT/HCPCS: 99213; G0463

== ENCOUNTER 2024-11-26 10:05 | Outpatient (AMB) | payer MEDICAID, SELFPAY ==
--- NOTE | 2024-11-26 10:06 | OBCLNT_ITS ---
Vital Signs 11/26/24 10:16 Height 1.5 m Height Method Stated Weight 94.404 kg Weight Measurement Method Standing Scale BMI 41.9 BP 128/79 Blood Pressure Source Automatic Cuff Blood Pressure Location Right Upper Arm Position Sitting Respiration 15 Pulse 79 Pulse Source Monitor Temp 97.5 F Temp Source Oral Pulse Oximetry (%) 98 Oxygen Delivery Method Room Air Allergies/Home Meds Allergies & Medications Allergies No Known Allergies Allergy (Verified 12/03/24 12:07) Medication Reconciliation pren vit comb.1-iron cb-FA-DSS 90 mg-1 mg-50 mg tablet 1 tab PO .Q DAY 10/26/24 [History Confirmed 12/03/24] docusate sodium 100 mg capsule 100 mg PO BID 10 days #20 caps 12/04/24 [Rx] ferrous sulfate 325 mg (65 mg iron) tablet 325 mg PO QDAY #30 tabs 12/04/24 [Rx] ibuprofen 800 mg tablet 800 mg PO Q8H PRN See Comments 10 days #20 tabs 12/04/24 [Rx] Intake Visit Data Collection New Patient or Established: Established Patient (seen at [facility] within 3 years) Reason for Visit:: - Routine care at 39 weeks and 2 days gestation Seen by Clinical Staff ONLY (RN/MA): No Account Support Rep Required: Yes Account Support Rep's name/title: JIMILANA WINTERS Do You Feel Safe at Home: Yes Authorities Contacted: N/A PCP or OBGYN visit in last 3 months: Yes Hx Now: Yes Are you currently on any form of Control: No Pain Present Currently: No Pain Scale Used: Mortensen-Castro/Numerical Pain scale:: 0 Smoking Status Smoking Status: Never smoker Questionnaires Covid-19 Vaccine Questionnaire Has patient been vacinated for Covid-19 Have you been vacinated for Covid-19: No PHQ-9 PHQ-2 Over the last 2 weeks, how often have you been bothered by any of the following problems? 1. Little interest or pleasure in doing things: not at all 2. Feeling down, depressed, or hopeless: not at all Total score: 0 PHQ-9 3. Trouble falling or staying asleep, or sleeping too much: Not at all 4. Feeling tired or having little energy: Not at all 5. Poor appetite or overeating: Not at all 6. Feeling bad about yourself - or that you are a failure or have let yourself or your family down: Not at all 7. Trouble concentrating on things, such as reading the newspaper or watching television: Not at all 8. Moving or speaking so slowly that other people could have noticed? - Or the opposite - being so fidgety or restless that you have been moving around a lot more than usual: not at all 9. Thoughts that you would be better off or of hurting yourself in some way: Not at all Total score: 0 Source: Developed by Drs. Everett Perez, Amisha Barnhart, Madi Larry and colleagues, with an educational nani from [employer]. 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 - Patient has a history of two previous full-term vaginal deliveries. - She was admitted to labor and delivery for labor about a month ago, which has since resolved. - Patient denies any current complaints. - She reports no contractions or labor pains at present. - movement is reported as active. No contractions/ LOF/VB, reports good FM No BARKER/VC/RUQ/Epig pain Care OB Visit Log OB Flowsheet Initial Weight: Not Recorded Date -?-?-?-?-?-?-?-?-?-?-?-?- EGA Weight BP Alb Glu CTX Pres Fundal ht FHR Mov Dilation Station Effacement Hx Notes Visit Note 10/17/24 -?-?-?-?-?-?-?-?-?-?-?-?- 33w 4d 91.172 kg 115/74 145 OB Transfer of Care 11/04/24 -?-?-?-?-?-?-?-?-?-?-?-?- 36w 1d 91.285 kg 116/71 155 The patient recently had a brief hospital stay of one night for evaluation, but no cervical changes were noted, indicating she was not in active labor. No contractions/ LOF/VB, reports good FM No BARKER/VC/RUQ/Epig pain. Group B Streptococcus (GBS) screening. Educated the patient on labor si gns, including regular contractions, lower back pain, and changes in vaginal discharge. Advised avoiding heavy lifting and getting adequate rest. Instructed to contact the office immediately if any signs occur. Discussed the importance of a balanced diet rich in folic acid, iron, and calcium, and provided a list of recommended and to-avoid foods. Emphasized avoiding high-sugar foods to reduce gestational diabetes risk. Encouraged hydration and frequent, small meals for energy.. 11/12/24 -?-?-?-?-?-?-?-?-?-?-?-?- 37w 2d 91.796 kg 131/68 160 April Cool, patient, presents for follow-up after prior report of discomfort and contractions. No CTX/LOF/VB. Reports good FM. No BARKER/VS , Epig/RUQ pain. Completed prescribed medication. Symptom s improved. heart rate 160 bpm (normal). Assessment & Plan: April Cool is a patient p resenting for follow-up with resolution of prior discomfort and contractions. Symptoms improved, completed medication course heart rate reassuring at 160 bpm Good movement reported Follow-up visit scheduled in 1 week Routine counseling Educated on labor signs: regular contractions, lower back pain, changes in discharge Advised avoiding heavy lifting, ensuring adequate rest Reviewed importance of balanced diet (ri ch in folic acid, iron, calcium) Emphasized avoiding high-sugar foods to reduce gestational diabetes risk Encouraged hydration and frequent small meals for energy Instructed to contact office immediately if concerning sympt oms arise 11/19/24 -?-?-?-?-?-?-?-?-?-?-?-?- 38w 2d 93.44 kg 112/71 145 active 36-year-old at 38 weeks and 2 days gestation presenting for a routine visit. She recently transferred care from Dr. Metzger at [facility]. The patient reports experiencing mild contractions but otherwise has no concerns. She has a history of two prior full-term vaginal deliveries in 2019 and 2021. movement is reported as normal, and there are no signs of labor, leakage of fluid, or vaginal bleeding. heart rate is 141 bpm. Her labs are reassuring, with a blood type of O-positive, rubella immunity, negative screens for hepatitis B, HIV, gonorrhea, and chlamydia, and a normal glucose tolerance result. Plan: Schedule follow-up visit at 39 weeks Perform cervical exam at next visit Advise patient to schedule 2 additional appointments Continue monitoring for signs of labor Reinforce standard education, i ncluding diet, hydration, rest, and when to seek medical attention 11/26/24 -?-?-?-?-?-?-?-?-?-?-?-?- 39w 2d 94.404 kg 128/79 Mckenna, 19 y/o at 39w2d, presents for routine care. History of two prior full-term vaginal deliveries. Admitt ed for labor at ~35 weeks, which resolved. Currently denies contractions or labor symptoms. movement is active. No CTX/LOF/VB. heart rate is 136 bpm. Plan: Follow-up in one week if no delivery Instruct patient to present to L&D if co ntractions persist >1 hour, or for LOF, VB, or decreased movement Routine counseling provided: pr eterm labor signs, rest, nutrition, and hydration Let me know if you'd like this added to your consolidated OB documentation. ADRIAN Calculator Estimated Delivery Date Method Current WG Current Estimate 12/01/24 LMP (Certain) 41w 1d Exam General General Appearance: alert, in no apparent distress and healthy appearing Head Head exam: atraumatic Neck Neck exam: Present normal inspection and trachea midline Chest Chest inspection: Present normal inspection and symmetric chest wall rise External exam: Present normal external exam; Absent tenderness Neuro Neurological exam: Present oriented X3 Psych Psychiatric exam: Present normal affect and normal mood Office Procedures OB Clinic LOC & Office Proc's Nursing/Assessment Patient Status: Established Patient OB Clinic Nursing Assessment: Medication Reconciliation, Update PMH in EMR and Vital Signs OB Clinic Coordination of Care: Complex Care and Chronic Disease 1-5, Consent,records obtained, informed consent, Education Simp Pt/Fam, Lab and Imaging orders, Results/Orders obtained and Staff clarify orders Special Needs: Heart tones Miscellaneous Interventions: Blood/Urine Collection Established Patient Charge Established Patient Point Assignment: 165 Established Patient Point Charge: EP Level 5 (160-above) Assessment & Plan Diagnosis / Problem List (1) Supervision of high risk , unspecified, third trimester: Status: Acute (2) labor in third trimester: Status: Acute Qualifiers: labor delivery status: without delivery Qualified Code(s): O60.03 - labor without delivery, third trimester Plan Problem List - , 39 weeks and 2 days - History of labor Assessment - Intrauterine at 39 weeks and 2 days gestation - with history of 2 previous full-term vaginal deliveries - History of labor at approximately 35 weeks, now resolved - heart rate 136 bpm Plan - Follow-up appointment scheduled in one week - Patient instructed to come to the hospital if contractions persist for more than an hour Educated the patient on labor signs, including regular contractions, lower back pain, and changes in vaginal discharge. Advised avoiding heavy lifting and getting adequate rest. Instructed to contact the office immediately if any signs occur. Discussed the importance of a balanced diet rich in folic acid, iron, and calcium, and provided a list of recommended and to-avoid foods. Emphasized avoiding high-sugar foods to reduce gestational diabetes risk. Encouraged hydration and frequent, small meals for energy..
[2024-11-26 10:16] VITALS: BP 128/79; PULSE 79; RESP 15; TEMP 36.4; O2SAT 98; BMI 41.9
== END 2024-11-26 10:24 | disposition home or self-care (01) ==
PROVIDERS: Supervising Provider Obstetrics & Gynecology; Visit Provider Obstetrics & Gynecology
DX: O09.213 Supervision of pregnancy with history of pre-term labor, third trimester (principal); Z3A.39 39 weeks gestation of pregnancy
CPT/HCPCS: 99215; G0463

== ENCOUNTER 2024-12-01 16:28 | Observation (INO) | payer MEDICAID, SELFPAY ==
[2024-12-01 16:42] VITALS: BP 128/75; PULSE 72
[2024-12-01 17:04] VITALS: BP 128/75; PULSE 72; RESP 18; RESP 99; TEMP 36.7; BMI 37.8
[2024-12-01 17:12] LABS: ROM Kit Lot # 57807112; ROM Swab Mixed By: SAUCT; Rupture of Fetal Membranes Negative (Negative); Swb Mxed in Solvent 1 min? Yes
--- NOTE | 2024-12-01 18:01 | ESPR_ITS ---
Documentation for date of: 12/01/24 OB Labor Progress Note Pelvic Exam Dilation (cm): 2 Effacement (%): 60 station: -2 Amniotic membrane status: Intact Contractions Monitor mode: External Contraction frequency: 10-12 Contraction intensity: Mild Status status: Category l Assessment and Plan Comments: April is a 19yo with SIUP at 40&0wk presenting to L&D for vaginal le akage of fluid that started this morning. She notes ctx that are 4/10 in discomfort occurring every 10 minutes or so. No vaginal bleeding. Normal movement. Current : This is complicated only by an admission in October for concern for labor (cervix 3cm) with discharge after receiving steroids and observation. Good care with Dr. Hines. Previous pregnancies: history of 2 prior uncomplicated vaginal deliveries at term ROS negative other than what was described above. Vitals wnl, afebrile General: well developed, well nourished, no acute distress, conversant Cardiac: normal heart rate Lungs: breathing without distress Abdomen: soft, gravid, non-tender, no rebound or guarding Extremities: no edema of BLE SCE: 2/60/-2, unchanged after 1 hour Per RN: No gross leakage of fluid or pooling with collection of AmniSure NST: Reactive, +accels, no decels, mod yola [place]: ctx q9-10 minutes Bedside ultrasound performed by Dr. Phillips: SIUP with cephalic presentation, +FCA, active FM, posterior placenta, DONIS 9.5cm Labs: AmniSure ROM Test: Negative Assessment: April is a 19yo with SIUP at 40&0wk with no evidence of ROM. Vitals wnl, benign exam. Reassuring status based on NST/DONIS (modified BPP). Amnisure negative. Plan: -Discussed findings and diagnosis with patient and support person, answered all questions to their apparent satisfaction -Continue routine follow up with OBGYN within 1 week -Return precautions discussed Bere Phillips MD
== END 2024-12-01 17:55 | disposition home or self-care (01) ==
PROVIDERS: Admitting Provider Obstetrics & Gynecology; Visit Provider Obstetrics & Gynecology
DX: O47.1 False labor at or after 37 completed weeks of gestation (principal); Z3A.40 40 weeks gestation of pregnancy
CPT/HCPCS: 59025; 59899; 81514; 84112

== ENCOUNTER 2024-12-03 09:15 | Inpatient (IN) | payer MEDICAID, SELFPAY ==
[2024-12-03] VITALS (13 sets, daily range): BP systolic 118–154; BP diastolic 69–90; PULSE 63–90; RESP 16–19; TEMP 36.7–37.1; O2SAT 97–98; BMI 41.8
[2024-12-03] MEDS: OXYTOCIN in NS 20 units 20 UNIT/1,000 ML BAG 125 UNIT IV (09:10)
[2024-12-03] MEDS: BENZO/LANO/ALOE (Dermoplast) 60 GM CAN 1 SPRAY TOP (10:21)
[2024-12-03] MEDS: IBUPROFEN TAB 400 MG TABLET 800 MG PO ×2 (10:21→20:49)
--- NOTE | 2024-12-03 10:22 | ESHP_ITS ---
Documentation for date of: 12/03/24 OB Labor/Induct. HPI History of Present Illness Chief complaint: delivered at home : 3 Para: 3 Term pregnancies: 3 pregnancies: 0 Living children: 3 History of Abortions: Spontaneous and Elective: 0 History of Vaginal deliveries: 3 History of sections: No History of : No ADRIAN: 12/01/24 History of present illness: April is a 19yo [id number] s/p uncomplicated precipitous at home at 40&2wk, delivering at 0838 on 12/03/2024. She started having ctx at 0700 and didn't have a ride to the hospital, so EMS was called. They arrived, and she got onto the gurney and immediately delivered at 0838. Per report, had good spontaneous cry immediately and was pink. Placenta delivered at 0910. History of Present Dating criteria: LMP confirmed by 1st trimester US Adequate Care: Yes Narrative: Hx of 2 prior term Transfer of care to Dr. Hines from Dr. Metzger at [facility] Current BMI 41.8, passed 1hr glucola Labs Labs: Positive: Rubella Titre, Negative: RPR, Hepatitis B, HIV, Chlamydia and Gonorrhea and Unknown: Herpes Type 1, Herpes Type 2, Group Beta Strep and Covid-19 Review of Systems Review of Systems Narrative Review of Systems: Review of Systems Systems Reviewed: All systems reviewed, normal except as documented Constitutional Constitutional: Denies body ache(s), Denies chills, Denies fever(s) and Denies headache(s) ENT Ears, Nose, Mouth, and Throat: Denies headache(s) and Denies vertigo Cardiovascular Cardiovascular: Denies chest pain, Denies palpitations, Denies dyspnea and Denies syncope Respiratory Respiratory: Denies cough, Denies dyspnea Gastrointestinal Gastrointestinal: Denies nausea and Denies vomiting Neurologic Neurologic: Denies convulsions, Denies headache(s), Denies other visual disturbances, Denies syncope and Denies vertigo Past Medical History Family History OTHER FAMILY HX: non-contributory Surgical History SURGICAL: Negative Section OTHER SURGICAL HX: no abdominal surgeries Social History SOCIAL: no ETOH/tobacco/illicit drug use Past Medical History Comments PMH COMMENT: Current BMI 41.8 Meds Home Medications and Allergies Home Medications ?Medication ?Instructions ?Recorded ?Confirmed ?Type pren vit comb.1-iron cb-FA-DSS 90 1 tab PO .Q DAY 10/1511/26/24 History mg-1 mg-50 mg tablet Allergies Allergy/AdvReac Type Severity Reaction Status Date / Time No Known Allergies Allergy Verified 11/26/24 10:17 OB Exam Physical Exam Vital signs: Pulse BP 65 137/82 H 12/03/24 10:20 12/03/24 10:20 Narrative: General: well developed, well nourished, no acute distress, conversant Cardiac: normal heart rate Lungs: breathing without distress Abdomen: soft, post-gravid, non-tender, no rebound or guarding, fundus firm at u-2cm Placenta lying between patient's legs with trailing membranes still within the vagina OB Results Labs 12/03/24 09:35 OB Assessment & Plan Assessment and Plan (1) Spontaneous vaginal delivery: Status: Acute Assessment and plan: April is a 19yo [id number] s/p uncomplicated precipitous at home at 40&2wk, delivering at 0838 on 12/03/2024. She started having ctx at 0700 and didn't have a ride to the hospital, so EMS was called. They arrived, and she got onto the ratco and immediately delivered at 0838. Per report, infant had good spontaneous cry immediately and was pink. Placenta delivered at 0910. Vitals wnl PMhx/Obhx: Hx of 2 prior term Transfer of care to Dr. Hines from Dr. Metzger at [facility] Current BMI 41.8, passed 1hr glucola Plan: -Admit for care -Regular diet -Routine labs Bere Phillips MD (2) Obesity affecting in third trimester: Status: Acute (2) Obesity affecting in third trimester Qualifiers: Obesity type affecting : unspecified obesity Qualified Code(s): O 99.213 - Obesity complicating , third trimester
[2024-12-03 10:47] LABS: Basophils % (Auto) 0 % (0-2.5); Eosinophils % (Auto) 0 % (0-10); Hematocrit 27.6 % (36.0-46.0); Hemoglobin 9.6 g/dL (12.0-16.0); Immature Granulocytes % (Auto) 1 % (0-0); Immature Granulocytes Auto 0.06 Thou/mm3 (0.00-0.00); Lymphocytes # (Auto) 1.1 Thou/mm3 (1.0-4.8); Lymphocytes % (Auto) 12 % (10-50); Mean Corpuscular HGB Conc 34.8 g/dl (31.0-37.0); Mean Corpuscular Volume 81 fL (80-100); Monocytes # (Auto) 0.5 Thou/mm3 (0.0-0.8); Monocytes % (Auto) 5 % (0-12); Neutrophils # (Auto) 7.4 Thou/mm3 (1.8-7.7); Neutrophils % (Auto) 82 % (37-80); Nucleated Red Blood Cell % 0 /100 WBC (0); Platelet Count 169 Thou/mm3 (140-440); RDW Standard Deviation 38.3 fL (36.4-46.3); Red Blood Count 3.43 Miln/mm3 (4.00-5.20); White Blood Count 9.1 Thou/mm3 (3.6-11.0)
--- NOTE | 2024-12-03 11:00 | OBDSUM_ITS ---
Data ([facility]) Data Hx Section: No : 3 Term: 23 : 0 Livin Abortions: Spontaneous & Theraputic: 2 Delivery Data ([place]) Labor Data Initiation of labor: Spontaneous Induction/Augmentation Agent: None ROM date: 12/03/24 ROM time: 08:30 Amniotic membrane rupture type: Spontaneous Amniotic fluid description: Clear Delivery Data Onset of labor date: 12/03/24 Onset of labor time: 07:00 Complete dilation date: 12/03/24 Complete dilation time: 08:38 [place] delivery date: 12/03/24 delivery time: 08:38 Placenta delivery date: 12/03/24 Placenta delivery time: 09:10 Stage 1 total time: Labor - Stage 1 Duration 1 hours and 38 minutes Delivered by: Academic Associate Delivery nurse: Academic Associate Neworn nurse: Academic Associate Perioperative Assistant at delivery: No Support person(s) at delivery: Sister in law at bedside at 0945 Other staff at delivery: Home delivery Delivery Method Delivery method: Precipitous Vaginal Delivery Presentation: Vertex Anesthesia Type Anesthesia Type: None Placenta Cord blood sent to lab: No Episiotomy Episiotomy description: None EBL Estimated blood loss (ml): 250 Umbilical Cord cord description: 3 Vessels Additional Procedures April is a 19yo [id number] s/p uncomplicated precipitous at home at 40&2wk, delivering at 0838 on 12/03/2024. She started having ctx at 0700 and didn't have a ride to the hospital, so EMS was called. They arrived, and she got onto the [place]ont and immediately delivered at 0838. Per report, had good spontaneous cry immediately and was pink. Placenta delivered at 0910. When I arrived to the room, placenta and amniotic sac was between patient's legs and trailing membranes were still within the vagina. I teased out the trailing membranes and they were intact. Fundus was firm at u-2cm and hemostasis noted. Inspection of perineum and vagina revealed small superficial abrasions on the perineum, hemostatic, no sutures needed. Sweep just within cervix/LYNDON performed which revealed no retained POCs, a very small amount of clot was retrieved. All counts correct x2. Mom was doing well when I left the room. Bere Phillips MD Complications Complications: none [place] Data ([place]) Data order: 1 's gender: Female Identification band number: [id number] weight (gms): 3230 g Weight (pounds): 7 lbs and 1.9 ozs length: 50 cm 1 minute: 9 5 minutes: 9
--- NOTE | 2024-12-03 11:18 | PC.NURSE ---
Patient arrived to the unit via EMS at 0915 with baby on arms, both mom and baby appeared to be in stable condition, Suzanne Yun&Osmin nurse placed baby under warmer for evaluation. Per chronometer adjuster patient was waiting outside for EMS reporting urge to push, upon placement on gurney patient beared down and delivered a female at 0838, cried and appeared pink with no signs of distress. Placenta delivered at appx 0910 per EMT but still attached to the patient. Dr. Phillips in OB OR called at about 0925 and came to bedside at appx 0935 to deliver placenta and assess bleeding, EBL 200, IV pitocin given.
[2024-12-03 11:21] LABS: Syphilis Nonreactive (Nonreactive)
[2024-12-03] MEDS: ACETAMINOPHEN 325 MG TABLET 650 MG PO (15:24)
[2024-12-03 16:42] LABS: Basophils % (Auto) 0 % (0-2.5); Eosinophils % (Auto) 0 % (0-10); Hemoglobin 9.1 g/dL (12.0-16.0); Immature Granulocytes % (Auto) 1 % (0-0); Immature Granulocytes Auto 0.06 Thou/mm3 (0.00-0.00); Lymphocytes # (Auto) 1.3 Thou/mm3 (1.0-4.8); Lymphocytes % (Auto) 12 % (10-50); Mean Corpuscular HGB Conc 33.7 g/dl (31.0-37.0); Mean Corpuscular Hemoglobin 27.9 pg (25.0-35.0); Mean Corpuscular Volume 83 fL (80-100); Monocytes # (Auto) 0.5 Thou/mm3 (0.0-0.8); Monocytes % (Auto) 5 % (0-12); Neutrophils # (Auto) 8.9 Thou/mm3 (1.8-7.7); Neutrophils % (Auto) 82 % (37-80); Nucleated Red Blood Cell % 0 /100 WBC (0); Platelet Count 176 Thou/mm3 (140-440); RDW Standard Deviation 39.7 fL (36.4-46.3); Red Blood Count 3.26 Miln/mm3 (4.00-5.20); White Blood Count 10.8 Thou/mm3 (3.6-11.0)
[2024-12-03] MEDS: DOCUSATE SOD 100 MG CAPSULE PO (20:49)
[2024-12-04 00:38] VITALS: BP 133/79; PULSE 61; RESP 20; TEMP 36.7; O2SAT 98
[2024-12-04] MEDS: ACETAMINOPHEN 325 MG TABLET 650 MG PO ×2 (01:01→11:22)
[2024-12-04 04:18] VITALS: BP 116/71; PULSE 60; RESP 18; TEMP 36.8; O2SAT 98
[2024-12-04] MEDS: IBUPROFEN TAB 400 MG TABLET 800 MG PO (05:00)
--- NOTE | 2024-12-04 06:35 | PD.LDDS ---
DS: Providers Provider Date of admission: 12/03/24 09:15 Primary care physician: Physician No Primary/Family Admitting Provider: Bere Phillips MD Attending Provider on Admission: Bere Phillips MD Consults: 12/03/24 10:19 Referral Routine Comment: Attending Provider on DC: Bere Phillips MD Discharging Provider: Bere Phillips MD DS: Diagnosis Discharge Diagnosis (1) Spontaneous vaginal delivery: Status: Acute (2) Obesity affecting in third trimester: Status: Acute (3) Anemia, : Status: Acute Problem List Completed Was Problem List Reviewed/Reconciled?: Yes Summary/Hosp Course Brief History: April is a 19yo [id number] s/p uncomplicated precipitous at home at 40&2wk, delivering at 0838 on 12/03/2024. She started having ctx at 0700 and didn't have a ride to the hospital, so EMS was called. They arrived, and she got onto the gurney and immediately delivered at 0838. Per report, infant had good spontaneous cry immediately and was pink. Placenta delivered at 0910. She has had an uncomplicated course, meeting all milestones and feels ready for discharge home. She is ambulating without lightheadedness, tolerating regular diet no n/v, spontaneously voiding without issue. She has no chest pain or shortness of breath. No fevers or chills. Minimal, appropriate discomfort. Vitals normal, benign exam. Hemodynamically stable with no evidence of infection. PP Hgb 9.1. Peripartum Data Delivery Method: Precipitous Vaginal Delivery Episiotomy Description: None Status at Discharge Functional status at discharge: independent ambulation Overall status at discharge: patient is back to baseline Time Spent with Patient Time attestation: Total time spent providing and/or coordinating discharge services: Exam Vital Signs Temp Pulse Resp BP Pulse Ox 98.4 F 68 19 131/73 H 98 12/03/24 20:04 12/03/24 20:04 12/03/24 20:04 12/03/24 20:04 12/03/24 20:04 Narrative Exam General: well developed, well nourished, no acute distress, conversant Cardiac: normal heart rate Lungs: breathing without distress Abdomen: soft, post-gravid, non-tender, no rebound or guarding, Fundus firm at u-3cm. Extremities: no pain with palpation of calves, trace edema of BLE Discharge Plan Plan Patient Disposition: HOME (Self Care) Patient condition on transfer: Stable Prescriptions/Referrals Prescriptions/Med Rec: New docusate sodium 100 mg Capsule 100 mg PO BID 10 Days Qty: 20 0RF ibuprofen 800 mg tablet 800 mg PO Q8H PRN (Reason: See Comments) 10 Days Qty: 20 0RF ferrous sulfate 325 mg (65 mg iron) tablet 325 mg PO QDAY Qty: 30 0RF Continued pren vit comb.1-iron cb-FA-DSS 90-1-50 mg tablet 1 tab PO .Q DAY Discontinued nifedipine 10 mg capsule 10 mg PO TID Qty: 30 1RF Referrals: No Primary/Family,Physician [Primary Care Provider] - Patient/Caregiver Discharge Instructions Discharge Activity: activity as tolerated and other Other Discharge Activity Instructions:: vaginal rest and no heavy lifting more than 10 pounds for 6 weeks. Other Discharge Diet Instructions: regular diet Education Materials: After a Vaginal Print Language: Latvian Activity Restrictions/Additional Instructions: Follow up with OBGYN in 2-4 weeks. Call for appointment. Stand Alone Forms: Joann Award Info., Patient Portal Info Letter Discharge Order Discharge Orders: Discharge (Routine); Ordered 12/04/24 Ordered By: Bere Phillips Planned Discharge Date 12/04/24 (2) Obesity affecting in third trimester Qualifiers: Obesity type affecting : unspecified obesity Qualified Code(s): O99.213 - Obesity complicating , third trimester
[2024-12-04 07:27] VITALS: BP 135/82; PULSE 61; RESP 16; TEMP 37.1; O2SAT 97
[2024-12-04] MEDS: DOCUSATE SOD 100 MG CAPSULE PO (09:31)
== END 2024-12-04 11:37 | disposition home or self-care (01) | DRG 560 ==
LOC: S4SX 11:15 → S4NX 11:46
PROVIDERS: Admitting Provider Obstetrics & Gynecology; Visit Provider Obstetrics & Gynecology
DX: O99.214 Obesity complicating childbirth (principal); Z37.0 Single live birth; O62.3 Precipitate labor; O90.81 Anemia of the puerperium
CPT/HCPCS: 36415; 85025; 86780; 86850; 86900; 86901; J2590; A9270

== ENCOUNTER 2024-12-16 10:19 | Outpatient (AMB) | payer MEDICAID, SELFPAY ==
--- NOTE | 2024-12-16 10:52 | AMBOBPPN_ITS ---
Vital Signs 12/16/24 10:54 Height 1.5 m Height Method Measured Weight 87.997 kg Weight Measurement Method Standing Scale BMI 39.1 BP 118/79 Blood Pressure Source Automatic Cuff Blood Pressure Location Left Upper Arm Position Sitting Respiration 18 Pulse 70 Pulse Source Monitor Temp 97.2 F Temp Source Oral Pulse Oximetry (%) 97 Oxygen Delivery Method Room Air Allergies/Home Meds Allergies & Medications Allergies No Known Allergies Allergy (Verified 12/16/24 10:56) Medication Reconciliation pren vit comb.1-iron cb-FA-DSS 90 mg-1 mg-50 mg tablet 1 tab PO .Q DAY 10/26/24 [History Confirmed 12/16/24] ferrous sulfate 325 mg (65 mg iron) tablet 325 mg PO QDAY #30 tabs 12/04/24 [Rx Confirmed 12/16/24] vitamin-ferrous fumarate 28 mg iron-folic acid 800 mcg tablet ( Vitamins with Minerals) 1 tab PO QDAY #60 tabs 12/16/24 [Rx] Intake Visit Data Collection New Patient or Established: Established Patient (seen at [facility] within 3 years) Reason for Visit:: Seen by Clinical Staff ONLY (RN/MA): No Classroom Monitor Required: No Do You Feel Safe at Home: Yes Authorities Contacted: N/A PCP or OBGYN visit in last 3 months: Yes Date of Last PCP or OBGYN visit: 12/03/24 Hx Now: No Are you currently on any form of Control: No Pain Present Currently: No Pain Scale Used: Mortensen-Castro/Numerical Pain scale:: 0 Smoking Status Smoking Status: Never smoker DRY END TESTER: Past Medical History Past Medical History: No Hx Neurological Disorders, No Hx Breast Cancer, No Hx Cardiac Disorders, No Hx Hypertension, No Hx Cancer, No Hx Blood Disorders, No Hx Anemia, No Hx Gastrointestinal Disorders, No Hx Renal Disease, No Hx Diabetes Mellitus Type 1 and No Hx Diabetes Mellitus Type 2 Questionnaires Covid-19 Vaccine Questionnaire Has patient been vacinated for Covid-19 Have you been vacinated for Covid-19: Yes Social History Living Situation History Lives With: Family Housing: House Tobacco History Smoking Status: Never smoker Second Hand Smoke Exposure: No Alcohol History Alcohol Intake: Never Domestic Abuse History Do You Feel Safe at Home: Yes EPDS - PP Depression Screening [place] Pospartum Depression Screen I have been able to laugh and see the funny side of things: (0) As much as I always could I have looked forward with enjoyment to things: (0) As much as I ever did I have blamed myself unnecessarily when things went wrong: (0) No, never I have been anxious or worried for no good reason: (0) No, not at all I have felt scared or panicky for no very good reason: (0) No, not at all Things have been getting on top of me: (0) No, I have been coping as well as ever I have been so unhappy that I have had difficulty sleeping: (0) No, not at all I have felt sad or miserable: (0) No, not at all I have been so unhappy that I have been crying: (0) No, never The thought of harming myself has occurred to me: (0) Never Total Score: EPDS Score: Referral is indicated for score of 9 or more, suicidal, or if provider believes patient is depressed regardless of score.: 0 EPDS completed yes Care OB Visit Log OB Flowsheet Initial Weight: Not Recorded Date -?-?-?-?-?-?-?-?-?-?-?-?- EGA Weight BP Alb Glu CTX Pres Fundal ht FHR Mov Dilation Station Effacement Hx Notes Visit Note 10/17/24 -?-?-?-?-?-?-?-?-?-?-?-?- 33w 4d 91.172 kg 115/74 145 OB Transfer of Care 11/04/24 -?-?-?-?-?-?-?-?-?-?-?-?- 36w 1d 91.285 kg 116/71 155 The patient recently had a brief hospital stay of one night for evaluation, but no cervical changes were noted, indicating she was not in active labor. No contractions/ LOF/VB, reports good FM No BARKER/VC/RUQ/Epig pain. Group B Streptococcus (GBS) screening. Educated the patient on labor si gns, including regular contractions, lower back pain, and changes in vaginal discharge. Advised avoiding heavy lifting and getting adequate rest. Instructed to contact the office immediately if any signs occur. Discussed the importance of a balanced diet rich in folic acid, iron, and calcium, and provided a list of recommended and to-avoid foods. Emphasized avoiding high-sugar foods to reduce gestational diabetes risk. Enc ouraged hydration and frequent, small meals for energy.. 11/12/24 -?-?-?-?-?-?-?-?-?-?-?-?- 37w 2d 91.796 kg 131/68 160 April Cool, patient, presents for follow-up after prior report of discomfort and contractions. No CTX/LOF/VB. Reports good FM. No BARKER/VS , Epig/RUQ pain. Completed prescribed medication. Symptom s improved. heart rate 160 bpm (normal). Assessment & Plan: April Cool is a patient p resenting for follow-up with resolution of prior discomfort and contractions. Symptoms improved, completed medication course heart rate reassuring at 160 bpm Good movement reported Follow-up visit scheduled in 1 week Routine counseling Educated on labor signs: regular contractions, lower back pain, changes in discharge Advised avoiding heavy lifting, ensuring adequate rest Reviewed importance of balanced diet (ri ch in folic acid, iron, calcium) Emphasized avoiding high-sugar foods to reduce gestational diabetes risk Encouraged hydration and frequent small meals for energy Instructed to contact office immediately if concerning sympt oms arise 11/19/24 -?-?-?-?-?-?-?-?-?-?-?-?- 38w 2d 93.44 kg 112/71 145 active 36-year-old at 38 weeks and 2 days gestation presenting for a routine visit. She recently transferred care from Dr. Metzger at [facility]. The patient reports experiencing mild contractions but otherwise has no concerns. She has a history of two prior full-term vaginal deliveries in 2019 and 2021. movement is reported as normal, and there are no signs of labor, leakage of fluid, or vaginal bleeding. heart rate is 141 bpm. Her labs are reassuring, with a blood type of O-positive, rubella immunity, negative screens for hepatitis B, HIV, gonorrhea, and chlamydia, and a normal glucose tolerance result. Plan: Schedule follow-up visit at 39 weeks Perform cervical exam at next visit Advise patient to schedule 2 additional appointments Continue monitoring for signs of labor Reinforce standard education, i ncluding diet, hydration, rest, and when to seek medical attention 11/26/24 -?-?-?-?-?-?-?-?-?-?-?-?- 39w 2d 94.404 kg 128/79 Mckenna, 19 y/o at 39w2d, presents for routine care. History of two prior full-term vaginal deliveries. Admitted for labor at ~35 weeks, which resolved. Currently denies contractions or labor symptoms. movement is active. No CTX/LOF/VB. heart rate is 136 bpm. Plan: Follow-up in one week if no delivery Instruct patient to present to L&D if co ntractions persist >1 hour, or for LOF, VB, or decreased movement Routine counseling provided: pr eterm labor signs, rest, nutrition, and hydration Let me know if you'd like this added to your consolidated OB documentation. ADRIAN Calculator Estimated Delivery Date Method Current WG Current Estimate 12/01/24 LMP (Certain) 43w 4d HPI Interval History: 19 yo for 2 week pp visit. patient delivered at home, unattended. no transportation. Limited help at home. FOB involved. sibling adjusting. no interval complaints. patient was transported to [facility] after delivery at home. Dr Phillips examined patient and delivered placenta Was or delivery considered high risk: No Delivery type: vaginal Was labor induced: no Gestational age at delivery (weeks): 40 Delivery date: 12/03/24 Delivering provider: PATIENT DELIVERED AT HOME Delivery complications: No Is patient infant: Yes Is patient sexually active: No Contraception planned: patient declined today Review of Systems Review of Systems ROS limited to current DRY END TESTER complaints: Yes Exam Narrative Physical exam: perineum intact. no lochia, fundus firm, below umbilicus, breast soft. negative homans, 2 + dtr General Limitations: no limitations General Appearance: alert, in no apparent distress, comfortable, cooperative, healthy appearing, well developed and well groomed Chest Chest inspection: Present normal inspection and symmetric chest wall rise Resp Respiratory exam: Present normal lung sounds bilaterally Card Cardiovascular exam: Present regular rate, normal rhythm and normal heart sounds Abdominal Abdominal exam: Present soft and normal bowel sounds Psych Psychiatric exam: Present normal affect and normal mood Office Procedures OB Clinic LOC & Office Proc's Nursing/Assessment Patient Status: Established Patient OB Clinic Nursing Assessment: Medication Reconciliation, Update PMH in EMR and Vital Signs OB Clinic Coordination of Care: Complex Care and Chronic Disease 1-5, Consent,records obtained, informed consent, Education Simp Pt/Fam, Lab and Imaging orders, Results/Orders obtained and Staff clarify orders Established Patient Charge Established Patient Point Assignment: 105 Post Follow-up Visit Post Follow up Visit: Yes Assessment & Plan Diagnosis / Problem List (1) 2 weeks follow-up: Status: Acute Plan increase fluid. refill PNV, discuss latching and breast feeding position, discuss BC option, patient declined. rtc 3 week control and 6 week pp visit Care Reviewed delivery summary and any complications: Yes Uterus involuted to: 3 below umb Perineal / incision healing noted: Yes Screened for depression: Yes Depression counseling provided: No Discussed family planning & contraception: Yes Contraception planned: patient declined today Counseling on safe resumption of sexual activity: Yes Counseling on gradual excercise: Yes Discussed and concerns (describe), provided support: Yes Referred to autism specialist: No Counseled on good nutrition, hydration, and self care: Yes Reviewed vaccine status: No Chronic & current problems reconciled on problem list: Yes Additional follow up plans: no sex. advised condom use and effectiveness. refill PNV and continue. ok to walk daily. increase fluid, discuss diet Infant care discussed; questions answered: feeding Follow up: routine/prn (rtc for contraception 4 week)
[2024-12-16 10:54] VITALS: BP 118/79; PULSE 70; RESP 18; TEMP 36.2; O2SAT 97; BMI 39.1
== END 2024-12-16 11:46 | disposition home or self-care (01) ==
LOC: HODSOBC 10:19
PROVIDERS: Supervising Provider Obstetrics & Gynecology; Visit Provider Obstetrics & Gynecology
DX: Z39.2 Encounter for routine postpartum follow-up (principal); Z39.1 Encounter for care and examination of lactating mother
CPT/HCPCS: 99213; G0463

== ENCOUNTER 2025-01-20 10:05 | Outpatient (AMB) | payer MEDICAID, SELFPAY ==
--- NOTE | 2025-01-20 10:16 | AMBOBPPN_ITS ---
Vital Signs 01/20/25 10:17 Height 1.5 m Height Method Measured Weight 92.136 kg Weight Measurement Method Standing Scale BMI 40.9 BP 110/68 Blood Pressure Source Automatic Cuff Blood Pressure Location Right Upper Arm Position Sitting Respiration 17 Pulse 64 Pulse Source Monitor Temp 97.8 F Temp Source Temporal Artery Scan Pulse Oximetry (%) 97 Oxygen Delivery Method Room Air Allergies/Home Meds Allergies & Medications Allergies No Known Allergies Allergy (Verified 01/20/25 10:17) Medication Reconciliation pren vit comb.1-iron cb-FA-DSS 90 mg-1 mg-50 mg tablet 1 tab PO .Q DAY 10/26/24 [History Confirmed 01/20/25] ferrous sulfate 325 mg (65 mg iron) tablet 325 mg PO QDAY #30 tabs 12/04/24 [Rx Confirmed 01/20/25] vitamin-ferrous fumarate 28 mg iron-folic acid 800 mcg tablet ( Vitamins with Minerals) 1 tab PO QDAY #60 tabs 12/16/24 [Rx Confirmed 01/20/25] Intake Visit Data Collection New Patient or Established: Established Patient (seen at [facility] within 3 years) Reason for Visit:: VISIT Consent obtained for Telemed Visit: No Seen by Clinical Staff ONLY (RN/MA): No Head Of Digital Advertising & Integration Required: No Do You Feel Safe at Home: Yes Authorities Contacted: N/A PCP or OBGYN visit in last 3 months: Yes Date of Last PCP or OBGYN visit: 12/16/24 Hx Now: No Are you currently on any form of Control: No Pain Present Currently: No Pain Scale Used: Mortensen-Castro/Numerical Pain scale:: 0 Smoking Status Smoking Status: Never smoker 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: Past Medical History Past Medical History: No Hx Neurological Disorders, No Hx Breast Cancer, No Hx Cardiac Disorders, No Hx Hypertension, No Hx Cancer, No Hx Blood Disorders, No Hx Anemia, No Hx Gastrointestinal Disorders, No Hx Renal Disease, No Hx Diabetes Mellitus Type 1 and No Hx Diabetes Mellitus Type 2 Questionnaires Covid-19 Vaccine Questionnaire Has patient been vacinated for Covid-19 Have you been vacinated for Covid-19: No Social History Living Situation History Lives With: Family Housing: House Tobacco History Smoking Status: Never smoker Second Hand Smoke Exposure: No Alcohol History Alcohol Intake: Never Domestic Abuse History Do You Feel Safe at Home: Yes Care OB Visit Log OB Flowsheet Initial Weight: Not Recorded Date -?-?-?-?-?-?-?-?-?-?-?-?- EGA Weight BP Alb Glu CTX Pres Fundal ht FHR Mov Dilation Station Effacement Hx Notes Visit Note 10/17/24 -?-?-?-?-?-?-?-?-?-?-?-?- 33w 4d 91.172 kg 115/74 145 OB Transfer of Care 11/04/24 -?-?-?-?-?-?-?-?-?-?-?-?- 36w 1d 91.285 kg 116/71 155 The patient recently had a brief hospital stay of one night for evaluation, but no cervical changes were noted, indicating she was not in active labor. No contractions/ LOF/VB, reports good FM No BARKER/VC/RUQ/Epig pain. Group B Streptococcus (GBS) screening. Educated the patient on labor si gns, including regular contractions, lo wer back pain, and changes in vaginal discharge. Advised avoiding heavy lifting and getting adequate rest. Instructed to contact the office immediately if any signs occur. Discussed the importance of a balanced diet rich in folic acid, iron, and calcium, and provided a list of recommended and to-avoid foods. Emphasized avoiding high-sugar foods to reduce gestational diabetes risk. Encouraged hydration and frequent, small meals for energy.. 11/12/24 -?-?-?-?-?-?-?-?-?-?-?-?- 37w 2d 91.796 kg 131/68 160 April Cool, patient, presents for follow-up after prior report of discomfort and contractions. No CTX/LOF/VB. Reports good FM. No BARKER/VS , Epig/RUQ pain. Completed prescribed medication. Symptom s improved. heart rate 160 bpm (normal). Assessment & Plan: April Cool is a patient p resenting for follow-up with resolution of prior discomfort and contractions. Symptoms improved, completed medication course heart rate reassuring at 160 bpm Good movement reported Follow-up visit scheduled in 1 week Routine counseling Educated on labor signs: regular contractions, lower back pain, changes in discharge Advised avoiding heavy lifting, ensuring adequate rest Reviewed importance of balanced diet (ri ch in folic acid, iron, calcium) Emphasized avoiding high-sugar foods to reduce gestational diabetes risk Encouraged hydration and frequent small meals for energy Instructed to contact office immediately if concerning sympt oms arise 11/19/24 -?-?-?-?-?-?-?-?-?-?-?-?- 38w 2d 93.44 kg 112/71 145 active 36-year-old at 38 weeks and 2 days gestation presenting for a routine visit. She recently transferred care from Dr. Metzger at [facility]. The patient reports experiencing mild contractions but otherwise has no concerns. She has a history of two prior full-term vaginal deliveries in 2019 and 2021. movement is reported as normal, and there are no signs of labor, leakage of fluid, or vaginal bleeding. heart rate is 141 bpm. Her labs are reassuring, with a blood type of O-positive, rubella immunity, negative screens for hepatitis B, HIV, gonorrhea, and chlamydia, and a normal glucose tolerance result. Plan: Schedule follow-up visit at 39 weeks Perform cervical exam at next visit Advise patient to schedule 2 additional appointments Continue monitoring for signs of labor Reinforce standard education, i ncluding diet, hydration, rest, and when to seek medical attention 11/26/24 -?-?-?-?-?-?-?-?-?-?-?-?- 39w 2d 94.404 kg 128/79 Mckenna, 19 y/o at 39w2d, presents for routine care. History of two prior full-term vaginal deliveries. Admitted for labor at ~35 weeks, which resolved. Currently denies contractions or labor symptoms. movement is active. No CTX/LOF/VB. heart rate is 136 bpm. Plan: Follow-up in one week if no delivery Instruct patient to present to L&D if co ntractions persist >1 hour, or for LOF, VB, or decreased movement Routine counseling provided: pr eterm labor signs, rest, nutrition, and hydration Let me know if you'd like this added to your consolidated OB documentation. ADRIAN Calculator Estimated Delivery Date Method Current WG Current Estimate 12/01/24 LMP (Certain) 47w 1d HPI Interval History: 19 yo for 6 week PP. 12/03/24. baby girl. 7-2. breast and bottle. 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 fundus firm, below umb, perineum intact, no s/s of infection, well healed, 2+ DTR, no edema, negative Homans sign External exam: Present normal external exam Bimanual exam: Present normal bimanual exam Office Procedures OB Clinic LOC & Office Proc's Nursing/Assessment Patient Status: Established Patient OB Clinic Nursing Assessment: Medication Reconciliation, Update PMH in EMR and Vital Signs OB Clinic Coordination of Care: Complex Care and Chronic Disease 1-5, Consent,records obtained, informed consent, Education Simp Pt/Fam and Staff clarify orders Established Patient Charge Established Patient Point Assignment: 85 Post Follow-up Visit Post Follow up Visit: Yes Assessment & Plan Diagnosis / Problem List (1) Routine Follow-Up: (2) 6 weeks follow-up: Status: Acute Plan continue PNV, review latching and breast feeding position, increase fluid, review condom, compliance and effectiveness. discuss exercise and protien diet, rtc as needed for contraception Care Reviewed delivery summary and any complications: Yes Uterus involuted to: 3 below umb Perineal / incision healing noted: Yes Screened for depression: Yes Depression counseling provided: No Discussed family planning & contraception: Yes Contraception planned: condom Counseling on safe resumption of sexual activity: Yes Counseling on gradual excercise: Yes Discussed and concerns (describe), provided support: Yes Referred to software quality assurance specialist: No Counseled on good nutrition, hydration, and self care: Yes Reviewed vaccine status: No Chronic & current problems reconciled on problem list: Yes care discussed; questions answered: feeding Follow up: routine/prn (FP) Tobacco Smoking Status: Never smoker
[2025-01-20 10:17] VITALS: BP 110/68; PULSE 64; RESP 17; TEMP 36.6; O2SAT 97; BMI 40.9
== END 2025-01-20 10:51 | disposition home or self-care (01) ==
LOC: HODSOBC 10:05
PROVIDERS: PCP Advanced Practice Midwife; Referring Provider Advanced Practice Midwife; Supervising Provider Advanced Practice Midwife; Visit Provider Advanced Practice Midwife
DX: Z39.2 Encounter for routine postpartum follow-up (principal); Z39.1 Encounter for care and examination of lactating mother